=== PATIENT | female | born 1995 | race Caucasian/White ===

== ENCOUNTER 2016-09-15 19:53 | Emergency (ER) | payer OTHER ==
[~2016-09-15 19:53] MED LIST: ABIL2TAB; ABIL5TAB; ACET65TA; MOTR200T4; PERCOCET PO; SENN1TAB2 PO
[2016-09-15] MEDS ORDERED: IBUPROFEN 600 MG TAB As Ordered ONE (23:03)
--- NOTE | 2016-09-16 | REPUSA ---
CLINICAL HISTORY: Head trauma TECHNIQUE: Head CT without contrast COMPARISON: No study for comparison is available at the time of interpretation. Brain: No intracranial hemorrhage or parenchymal edema. Calvarium: No depressed fractures. Sinuses (partially visualized): No hemorrhage fluid levels. IMPRESSION: No intracranial hemorrhage or fracture.
--- NOTE | 2016-09-16 | REPUSA ---
HISTORY: Trauma COMPARISON: No relevant comparison is available at the time of interpretation. CT ORBITS without contrast: Nasal Bone: Intact. Sinuses and mastoids: Clear. Orbits: No retrobulbar trauma. Maxilla: Intact. IMPRESSION: No sinus fluid levels or orbital fracture.
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
--- NOTE | 2016-09-16 16:25 | REP ---
Right hand four views : There is no fracture or dislocation. Mineralization and joint spaces are normal. There are no calcifications or foreign bodies. Impression: Negative right hand . Signed by Jorge Bender MD 09/16/2016 04:16 P
--- NOTE | 2016-09-16 16:25 | REP ---
Right wrist four views : There is no fracture or dislocation. Mineralization and joint spaces are normal. There are no calcifications or foreign bodies. Impression: Negative right wrist . Signed by Jorge Bender MD 09/16/2016 04:16 P
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
== END 2016-09-16 01:17 | disposition home or self-care (01) ==
LOC: M ED 19:53
DX: S09.90XA Unspecified injury of head, initial encounter (principal); S60.811A Abrasion of right wrist, initial encounter; S80.211A Abrasion, right knee, initial encounter; Y04.8XXA Assault by other bodily force, initial encounter; Y92.89 Other specified places as the place of occurrence of the external cause; Y93.89 Activity, other specified; Y99.8 Other external cause status; Z88.1 Allergy status to other antibiotic agents; Z88.2 Allergy status to sulfonamides; Z88.8 Allergy status to other drugs, medicaments and biological substances; F17.210 Nicotine dependence, cigarettes, uncomplicated

== ENCOUNTER 2017-02-11 15:26 | Emergency (ER) | payer OTHER ==
[~2017-02-11] VITALS: Ht 172.7 cm; Wt 94.9 kg
[2017-02-11 15:26] VITALS: BP 123/68
== END 2017-02-11 16:37 | disposition home or self-care (01) ==
LOC: M ED 16:16
DX: S00.461A Insect bite (nonvenomous) of right ear, initial encounter (principal); W57.XXXA Bitten or stung by nonvenomous insect and other nonvenomous arthropods, initial encounter; Y92.89 Other specified places as the place of occurrence of the external cause; Y93.89 Activity, other specified; Y99.8 Other external cause status; Z88.2 Allergy status to sulfonamides; Z88.8 Allergy status to other drugs, medicaments and biological substances; F17.210 Nicotine dependence, cigarettes, uncomplicated

== ENCOUNTER → 2017-12-09 | Outpatient (CLI) | payer OTHER | LOC: M RAD 09:32 | DX: R10.9 Unspecified abdominal pain (principal) | CPT/HCPCS: 76705 ==

== ENCOUNTER → 2018-01-29 | Outpatient (CLI) | payer OTHER ==
[~2018-01-29] MED LIST changes: -ABIL2TAB; -ABIL5TAB; -ACET65TA; +E-Z-HD 98% w/w 340GM SUSP BTL As Ordered; +E-Z-PAQUE 96% w/w SUSP 176GM BTL As Ordered; -MOTR200T4; -PERCOCET PO; -SENN1TAB2 PO
== END ==
LOC: M RAD 08:19
DX: R19.7 Diarrhea, unspecified (principal)
CPT/HCPCS: 74250

== ENCOUNTER 2018-02-10 12:07 | Day surgery (SDC) | payer OTHER ==
[2018-02-10] MEDS: NS 1,000 ML IV (12:30)
[2018-02-10] MEDS ORDERED: LIDOCAINE 2% INJ 100 MG/5 ML SDV (FOR ANES.) As Ordered (13:50)
[2018-02-10] MEDS ORDERED: PROPOFOL 200 MG/20 ML VIAL As Ordered ×2 (13:50→14:02)
[2018-02-10] MEDS ORDERED: fentaNYL 100 MCG/2 ML INJECTION (J3010) As Ordered (14:02)
== END 2018-02-10 15:12 | disposition home or self-care (01) ==
LOC: M OPP 12:07
DX: K58.2 Mixed irritable bowel syndrome (principal); K64.8 Other hemorrhoids; K29.70 Gastritis, unspecified, without bleeding; R11.2 Nausea with vomiting, unspecified; R10.31 Right lower quadrant pain; R19.7 Diarrhea, unspecified; F41.9 Anxiety disorder, unspecified; F17.210 Nicotine dependence, cigarettes, uncomplicated; Z88.8 Allergy status to other drugs, medicaments and biological substances; Z83.3 Family history of diabetes mellitus; Z82.5 Family history of asthma and other chronic lower respiratory diseases; Z82.49 Family history of ischemic heart disease and other diseases of the circulatory system
CPT/HCPCS: 45378

== ENCOUNTER 2018-07-20 19:25 | Emergency (ER) | payer OTHER ==
[2018-07-20] MEDS: IBUPROFEN 600 MG TAB PO (20:33)
== END 2018-07-20 21:06 | disposition home or self-care (01) ==
LOC: M ED 19:25
DX: S61.208A Unspecified open wound of other finger without damage to nail, initial encounter (principal); W26.0XXA Contact with knife, initial encounter
CPT/HCPCS: 99284

== ENCOUNTER 2018-12-16 01:57 | Emergency (ER) | payer OTHER ==
[~2018-12-16] VITALS: Ht 172.7 cm; Wt 68.2 kg
[~2018-12-16 01:57] MED LIST changes: +ABIL2TAB; +ABIL5TAB; +ACET65TA; -E-Z-HD 98% w/w 340GM SUSP BTL As Ordered; -E-Z-PAQUE 96% w/w SUSP 176GM BTL As Ordered; +MOTR200T4; +PERCOCET PO; +SENN1TAB40 PO
[2018-12-16 03:10] VITALS: BP 126/70
--- NOTE | 2018-12-16 23:10 | ECGEPIP ---
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
[2018-12-17] MEDS ORDERED: ERYT-52 PO (18:46)
[2018-12-17] MEDS ORDERED: IBUP-1022 PO (18:46)
[2018-12-17] MEDS ORDERED: PROAAER10 INH (18:46)
== END 2018-12-16 03:09 | disposition left against medical advice (07) ==
LOC: M ED 01:57
DX: Z53.21 Procedure and treatment not carried out due to patient leaving prior to being seen by health care provider (principal)

== ENCOUNTER 2018-12-17 18:06 | Emergency (ER) | payer OTHER, MEDICAID ==
[~2018-12-17] VITALS: Ht 172.7 cm; Wt 78.0 kg
[2018-12-17 18:06] VITALS: BP 128/70
[2018-12-17] MEDS ORDERED: PROAAER10 INH (18:46)
[2018-12-17] MEDS ORDERED: ERYT-52 PO (18:46)
[2018-12-17] MEDS ORDERED: IBUP-1022 PO (18:46)
== END 2018-12-17 18:51 | disposition home or self-care (01) ==
LOC: M ED 18:06
DX: J40 Bronchitis, not specified as acute or chronic (principal); F17.200 Nicotine dependence, unspecified, uncomplicated; Z88.2 Allergy status to sulfonamides; Z88.1 Allergy status to other antibiotic agents; Z88.8 Allergy status to other drugs, medicaments and biological substances

== ENCOUNTER 2018-12-18 21:20 | Emergency (ER) | payer OTHER, MEDICAID ==
[~2018-12-18] VITALS: Ht 172.7 cm; Wt 68.2 kg
[~2018-12-18 21:20] MED LIST changes: +ERYT-52 PO; +IBUP-1022 PO; +PROAAER10 INH
[2018-12-18] MEDS ORDERED: NS 500 ML IV ONE (23:15)
[2018-12-18] MEDS ORDERED: MORPHINE 4 MG/ML 1ML VIAL/SYRINGE (J2270) IV ONE (23:15)
[2018-12-18] MEDS ORDERED: ONDANSETRON 4MG/2ML VIAL (J2405) As Ordered ONE (23:23)
[2018-12-18 23:27] LABS: BASO % 0.4 % (0.0-1.0); EOS # 0.1 10^3/uL (0.0-0.50); EOS % 1.6 % (0.0-3.0); HEMATOCRIT 39.3 % (36.0-47.0); HEMOGLOBIN 13.6 g/dl (12.0-15.5); LYMPH # 2.4 10^3/uL (1.5-6.5); LYMPH % 29.3 % (24.0-44.0); MEAN CORPUSCULAR HEMOGLOBIN 32.2 pg (27.0-33.0); MEAN CORPUSCULAR HGB CONC 34.6 g/dl (32.0-36.5); MEAN CORPUSCULAR VOLUME 93.1 fl (80.0-96.0); MONO # 0.6 10^3/uL (0.0-0.8); MONO % 7.6 % (0.0-5.0); PLATELET COUNT, AUTOMATED 279 10^3/uL (150-450); RED BLOOD COUNT 4.22 10^6/uL (4.00-5.40); WHITE BLOOD COUNT 8.2 10^3/uL (4.0-10.0)
[2018-12-18] MEDS ORDERED: ONDANSETRON 4MG/2ML VIAL (J2405) IV ONE (23:30)
[2018-12-18] MEDS ORDERED: ISOVUE-370 76% 100ML VIAL (Q9967) As Ordered ONE (23:39)
[2018-12-18 23:53] LABS: BLOOD UREA NITROGEN 5 MG/DL (7-18); CALCIUM LEVEL 8.9 MG/DL (8.5-10.1); CARBON DIOXIDE LEVEL 25 MEQ/L (21-32); CHLORIDE LEVEL 110 MEQ/L (98-107); CK-MB VALUE MASS < 1.0 NG/ML (<3.6); CPK CREATINE PHOSPHOKINASE 120 U/L (26-192); CREATININE FOR GFR 0.79 MG/DL (0.55-1.30); GLOMERULAR FILTRATION RATE > 60.0 (>60); GLUCOSE, FASTING 87 MG/DL (70-100); MB/CK RELATIVE INDEX 0.83 (< OR =4); POTASSIUM SERUM 3.4 MEQ/L (3.5-5.1); SODIUM LEVEL 142 MEQ/L (136-145); TROPONIN I < 0.02 NG/ML (< 0.10)
[2018-12-18 23:57] LABS: HCG, SERUM QUALITATIVE NEGATIVE (NEGATIVE)
[2018-12-19] MEDS ORDERED: KETOROLAC 30 MG/ML VIAL (J1885) IV ONE
[2018-12-19] MEDS ORDERED: GI COCKTAIL 50ML BTL(HYOSCYAMINE/MAALOX/LIDOCAINE VISCOUS)(1:3:1) PO ONE (01:00)
--- NOTE | 2018-12-19 01:02 | REPVR ---
EXAM: CT Angiography Chest With Contrast EXAM DATE/TIME: 12/18/2018 11:02 PM CLINICAL HISTORY: 23 years old, female; Chest pain; Type not specified; Additional info: Chest pain/ SOB TECHNIQUE: Imaging protocol: Axial computed tomographic angiography images of the chest with intravenous contrast using CT angiography protocol. Coronal and sagittal reformatted images were created and reviewed. 3D rendering: MIP reconstructed images were created and reviewed. Radiation optimization: All CT scans at this facility use at least one of these dose optimization techniques: automated exposure control; mA and/or kV adjustment per patient size (includes targeted exams where dose is matched to clinical indication); or iterative reconstruction. Contrast material: ISO; Contrast volume: 75 ml; Contrast route: AC; COMPARISON: CR Abdomen,Flat Upright,PA CHEST 05/26/2016 9:13 PM FINDINGS: Pulmonary arteries: Normal. No pulmonary emboli. Aorta: No aortic aneurysm. Suboptimal opacification of the aorta. Great vessels off aortic arch: Incidental aberrant right subclavian artery. Lungs: Subpleural nodule in the posterior basal segment of the right lower lobe measuring 5 mm. Subpleural nodule in the superior segment of the left lower lobe measuring 5 mm. other smaller lung nodules in the lateral basal left lower lobe. No acute consolidation. Pleural space: Normal. No pneumothorax. No pleural effusion. Heart: Normal. No cardiomegaly. No pericardial effusion. Lymph nodes: Unremarkable. No enlarged lymph nodes. Bones/joints: Unremarkable. No acute fracture. Soft tissues: Unremarkable. IMPRESSION: 1. Negative for pulmonary embolism. 2. Lung nodules as described. Likely benign a patient without known cancer history. No followup is necessary. Electronically signed by: Rubens Neri On 12/19/2018 01:01:34 AM
[2018-12-19] MEDS ORDERED: PRIL20TA2 PO (01:13)
[2018-12-19] MEDS ORDERED: CARA1TAB6 PO (01:13)
[2018-12-19 01:15] VITALS: BP 140/93
--- NOTE | 2018-12-19 15:36 | ED PDOC ---
Post-Departure Follow-Up dr kim faxed formal report of [facility] for fu Talita Mares MD Dec 19, 2018 15:36
--- NOTE | 2018-12-19 19:46 | ECGEPIP ---
Stationary ECG Study 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
== END 2018-12-19 01:30 | disposition home or self-care (01) ==
LOC: M ED 21:20
DX: K21.0 Gastro-esophageal reflux disease with esophagitis (principal); R05 Cough; F41.9 Anxiety disorder, unspecified; F32.9 Major depressive disorder, single episode, unspecified; F17.210 Nicotine dependence, cigarettes, uncomplicated; Z88.2 Allergy status to sulfonamides; Z88.8 Allergy status to other drugs, medicaments and biological substances
CPT/HCPCS: 71275; 80048; 82550; 82553; 84484; 84703; 85025; 93005; 96374; 96375; 99284; J1885; J2270; J2405; Q9967

== ENCOUNTER 2018-12-23 10:28 | Emergency (ER) | payer OTHER, MEDICAID ==
[~2018-12-23] VITALS: Ht 172.7 cm; Wt 68.1 kg
[~2018-12-23 10:28] MED LIST changes: +CARA1TAB6 PO; +PRIL20TA2 PO
[2018-12-23] MEDS ORDERED: IBUP-1022 PO (10:40)
[2018-12-23] MEDS ORDERED: GI COCKTAIL 50ML BTL(HYOSCYAMINE/MAALOX/LIDOCAINE VISCOUS)(1:3:1) PO ONE (11:30)
[2018-12-23] MEDS ORDERED: PANTOPRAZOLE 40MG TAB (PROTONIX) PO ONE (11:30)
[2018-12-23 12:21] LABS: BASO % 0.2 % (0.0-1.0); EOS # 0.1 10^3/uL (0.0-0.50); EOS % 1.1 % (0.0-3.0); HEMATOCRIT 41.5 % (36.0-47.0); HEMOGLOBIN 14.5 g/dl (12.0-15.5); LYMPH # 1.2 10^3/uL (1.5-6.5); LYMPH % 18.5 % (24.0-44.0); MEAN CORPUSCULAR HEMOGLOBIN 32.6 pg (27.0-33.0); MEAN CORPUSCULAR HGB CONC 34.9 g/dl (32.0-36.5); MEAN CORPUSCULAR VOLUME 93.3 fl (80.0-96.0); MONO # 0.4 10^3/uL (0.0-0.8); MONO % 6.9 % (0.0-5.0); NEUTROPHILS # 4.5 10^3/uL (1.8-7.7); PLATELET COUNT, AUTOMATED 249 10^3/uL (150-450); RED BLOOD COUNT 4.45 10^6/uL (4.00-5.40); WHITE BLOOD COUNT 6.2 10^3/uL (4.0-10.0)
[2018-12-23] MEDS ORDERED: ACETAMINOPHEN TAB 650MG DOSE (2X325MG) PO ONE (12:45)
[2018-12-23 13:03] LABS: HCG, SERUM QUALITATIVE NEGATIVE (NEGATIVE)
[2018-12-23 13:04] LABS: ALBUMIN 3.7 GM/DL (3.2-5.2); ALT/SGPT 36 U/L (12-78); BILIRUBIN,DIRECT 0.2 MG/DL (0.0-0.2); BLOOD UREA NITROGEN 12 MG/DL (7-18); CALCIUM LEVEL 9.1 MG/DL (8.5-10.1); CARBON DIOXIDE LEVEL 25 MEQ/L (21-32); CHLORIDE LEVEL 110 MEQ/L (98-107); CK-MB VALUE MASS < 1.0 NG/ML (<3.6); CPK CREATINE PHOSPHOKINASE 80 U/L (26-192); CREATININE FOR GFR 0.79 MG/DL (0.55-1.30); FREE T4 1.05 NG/DL (0.76-1.46); GLOMERULAR FILTRATION RATE > 60.0 (>60); GLUCOSE, FASTING 89 MG/DL (70-100); LIPASE 85 U/L (73-393); MB/CK RELATIVE INDEX 1.25 (< OR =4); SODIUM LEVEL 141 MEQ/L (136-145); TOTAL PROTEIN 7.2 GM/DL (6.4-8.2); TROPONIN I < 0.02 NG/ML (< 0.10)
[2018-12-23] MEDS ORDERED: SUCRALFATE SUSP 1GM/10ML UD PO ONE (13:15)
[2018-12-23] MEDS ORDERED: PROMETHAZINE INJ 25 MG/ML VIAL (J2550) IV ONE (13:15)
--- NOTE | 2018-12-23 13:44 | REP ---
Chest two views HISTORY: Chest pain Comparison: None The lungs are clear. The heart is normal in size. The pulmonary vasculature is normal in appearance. The bony structure is intact. IMPRESSION: No acute disease. Electronically Signed by Angel Reeder MD 12/23/2018 01:35 P
[2018-12-23 13:45] VITALS: BP 136/69
--- NOTE | 2018-12-23 13:52 | REP ---
RIGHT UPPER QUADRANT ULTRASOUND: Real-time sonographic evaluation of the right upper quadrant performed. The gallbladder demonstrates no evidence of intraluminal sludge or calculi, wall thickening or pericholecystic fluid. There is no intrahepatic or extrahepatic biliary dilatation, common bile duct measuring 4 mm in diameter. Liver and pancreas demonstrate no gross mass. The pancreas is not optimally seen due to overlying bowel gas. Right kidney demonstrates no hydronephrosis with normal size 11.3 cm in length. IMPRESSION: Essentially negative right upper quadrant ultrasound. Electronically Signed by Jorge Robledo MD 12/24/2018 04:42 P
[2018-12-23] MEDS ORDERED: PROT1TAB2 PO (14:04)
[2018-12-23] MEDS ORDERED: ZOFR4TAB16 PO (14:04)
--- NOTE | 2018-12-24 05:48 | ECGEPIP ---
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
== END 2018-12-23 14:26 | disposition home or self-care (01) ==
LOC: M ED 10:28
DX: K21.0 Gastro-esophageal reflux disease with esophagitis (principal); R11.2 Nausea with vomiting, unspecified; Z88.2 Allergy status to sulfonamides; Z88.8 Allergy status to other drugs, medicaments and biological substances

== ENCOUNTER 2018-12-28 12:13 | Emergency (ER) | payer OTHER, MEDICAID ==
[~2018-12-28] VITALS: Ht 172.7 cm; Wt 74.0 kg
[~2018-12-28 12:13] MED LIST changes: +PROT1TAB2 PO; +ZOFR4TAB16 PO
[2018-12-28] MEDS ORDERED: NS 1,000 ML IV ONE (13:00)
[2018-12-28 13:51] LABS: BASO % 0.2 % (0.0-1.0); EOS % 0.5 % (0.0-3.0); HEMATOCRIT 45.8 % (36.0-47.0); HEMOGLOBIN 16.4 g/dl (12.0-15.5); LYMPH # 1.5 10^3/uL (1.5-6.5); LYMPH % 16.9 % (24.0-44.0); MEAN CORPUSCULAR HEMOGLOBIN 33.3 pg (27.0-33.0); MEAN CORPUSCULAR HGB CONC 35.8 g/dl (32.0-36.5); MEAN CORPUSCULAR VOLUME 93.1 fl (80.0-96.0); MONO # 0.6 10^3/uL (0.0-0.8); MONO % 6.8 % (0.0-5.0); NEUTROPHILS # 6.5 10^3/uL (1.8-7.7); NEUTROPHILS % 75.3 % (36.0-66.0); PLATELET COUNT, AUTOMATED 303 10^3/uL (150-450); RED BLOOD COUNT 4.92 10^6/uL (4.00-5.40); WHITE BLOOD COUNT 8.7 10^3/uL (4.0-10.0)
[2018-12-28 14:16] LABS: ALBUMIN 4.9 GM/DL (3.2-5.2); ALT/SGPT 54 U/L (12-78); AMYLASE 51 U/L (25-115); BILIRUBIN,DIRECT 0.5 MG/DL (0.0-0.2); BILIRUBIN,TOTAL 3.1 MG/DL (0.2-1.0); BLOOD UREA NITROGEN 12 MG/DL (7-18); CALCIUM LEVEL 9.6 MG/DL (8.5-10.1); CARBON DIOXIDE LEVEL 27 MEQ/L (21-32); CHLORIDE LEVEL 105 MEQ/L (98-107); CREATININE FOR GFR 0.89 MG/DL (0.55-1.30); GLOMERULAR FILTRATION RATE > 60.0 (>60); GLUCOSE, FASTING 79 MG/DL (70-100); LIPASE 63 U/L (73-393); POTASSIUM SERUM 3.9 MEQ/L (3.5-5.1); SODIUM LEVEL 139 MEQ/L (136-145); TOTAL PROTEIN 9.2 GM/DL (6.4-8.2)
[2018-12-28] MEDS ORDERED: ONDA4TAB6 PO (16:25)
[2018-12-28] MEDS ORDERED: PANT20TA2 PO (16:25)
[2018-12-28 16:26] VITALS: BP 126/82
--- NOTE | 2018-12-29 07:33 | REP ---
RIGHT UPPER QUADRANT ULTRASOUND: Real-time sonographic evaluation of the right upper quadrant performed. Gallbladder demonstrates no evidence of intraluminal sludge or calculi, wall thickening or pericholecystic fluid. There is no intrahepatic or extrahepatic biliary dilatation, common bile duct measuring 4 mm. Liver demonstrates no homogeneous echotexture with no gross mass. Pancreas could not be visualized due to overlying bowel gas. Right kidney demonstrates no hydronephrosis with normal size 11.1 cm in length. IMPRESSION: Negative right upper quadrant ultrasound. Electronically Signed by Jorge Robledo MD 12/29/2018 05:19 P
== END 2018-12-28 16:46 | disposition home or self-care (01) ==
LOC: M ED 12:13
DX: R11.2 Nausea with vomiting, unspecified (principal); R10.9 Unspecified abdominal pain; F33.9 Major depressive disorder, recurrent, unspecified; F41.9 Anxiety disorder, unspecified; F60.3 Borderline personality disorder; Z79.899 Other long term (current) drug therapy

== ENCOUNTER → 2019-01-21 | Outpatient (REF) | payer OTHER, MEDICAID ==
[~2019-01-21] MED LIST changes: +ONDA4TAB6 PO; +PANT20TA2 PO
[2019-01-21 11:43] LABS: CHOLESTEROL RISK RATIO 5.763 (<5)
[2019-01-21 12:26] LABS: HEMOGLOBIN A1c 4.5 %
== END ==
LOC: M SFHCPLAZ 08:28
PROVIDERS: ATTEND Nurse Practitioner Family
DX: Z83.3 Family history of diabetes mellitus (principal)

== ENCOUNTER → 2019-02-11 | Outpatient (REF) | payer OTHER, MEDICAID ==
[2019-02-11 18:40] LABS: CHLAMYDIA DNA AMPLIFICATION NEGATIVE (NEGATIVE); GC DNA AMPLIFICATION NEGATIVE (NEGATIVE)
== END ==
LOC: M SFHCPLAZ 16:04
PROVIDERS: ATTEND Nurse Practitioner Family
DX: Z12.4 Encounter for screening for malignant neoplasm of cervix (principal); R87.612 Low grade squamous intraepithelial lesion on cytologic smear of cervix (LGSIL)
CPT/HCPCS: 87661; G0123

== ENCOUNTER → 2019-05-06 | Outpatient (REF) | payer OTHER, MEDICAID ==
[2019-05-06 18:32] LABS: APPEARANCE, URINE CLOUDY (CLEAR); BACTERIA, URINE AUTO 3+ (NEGATIVE); BILIRUBIN, URINE AUTO NEGATIVE (NEGATIVE); BLOOD, URINE BLOOD 1+ (NEGATIVE); COLOR, URINE AMBER (YELLOW); GLUCOSE, URINE (UA) AUTO NEGATIVE (NEGATIVE); KETONE, URINE AUTO NEGATIVE (NEGATIVE); LEUKOCYTE ESTERASE, URINE AUTO 1+ (NEGATIVE); MUCUS, URINE SMALL (NEGATIVE); NITRITE, URINE AUTO NEGATIVE (NEGATIVE); PROTEIN, URINE AUTO 1+ mg/dL (NEGATIVE); RBC, URINE AUTO 1 /HPF (0-3); SPECIFIC GRAVITY URINE AUTO 1.029 (1.002-1.035); SQUAMOUS EPITHELIAL CELL UR AU 61 /HPF (0-6); UROBILINOGEN, URINE AUTO 0.2 mg/dL (0.0-2.0); WBC, URINE AUTO 4 /HPF (0-3)
== END ==
LOC: M SFHCPLAZ 17:39
PROVIDERS: ATTEND Nurse Practitioner Family
DX: R10.9 Unspecified abdominal pain (principal)

== ENCOUNTER 2019-06-15 17:08 | Emergency (ER) | payer OTHER, MEDICAID ==
[~2019-06-15] VITALS: Ht 172.7 cm; Wt 77.2 kg
[2019-06-15 17:08] VITALS: BP 165/70
[~2019-06-15 17:08] MED LIST changes: +SENN-53 PO; -SENN1TAB40 PO
--- NOTE | 2019-06-15 19:19 | REP ---
LEFT HAND, FOUR VIEWS: HAND: There is no evidence of an acute fracture, dislocation or intrinsic bone disease. IMPRESSION: No fracture or dislocation. Electronically Signed by Jorge Robledo MD 06/17/2019 09:39 A
== END 2019-06-15 19:26 | disposition left against medical advice (07) ==
LOC: M ED 17:08
DX: Z53.21 Procedure and treatment not carried out due to patient leaving prior to being seen by health care provider (principal)

== ENCOUNTER 2019-06-26 04:30 | Emergency (ER) | payer OTHER, MEDICAID ==
[~2019-06-26] VITALS: Ht 172.7 cm; Wt 72.7 kg
[2019-06-26] MEDS ORDERED: GI COCKTAIL 50ML BTL(HYOSCYAMINE/MAALOX/LIDOCAINE VISCOUS)(1:3:1) PO ONE (04:45)
[2019-06-26] MEDS ORDERED: NS 1,000 ML IV ONE (04:45)
[2019-06-26] MEDS ORDERED: diphenhydrAMINE INJ 50MG/ML VIAL (J1200) IV STA (04:46)
[2019-06-26] MEDS ORDERED: HALOPERIDOL 5 MG/ML VIAL (J1630) IV STA (04:46)
[2019-06-26 04:58] LABS: BASO % 0.3 % (0.0-1.0); EOS # 0.2 10^3/uL (0.0-0.5); EOS % 3.6 % (0.0-3.0); HEMATOCRIT 43.7 % (36.0-47.0); HEMOGLOBIN 14.7 g/dl (12.0-15.5); LYMPH # 2.9 10^3/uL (1.5-5.0); LYMPH % 48.7 % (24.0-44.0); MEAN CORPUSCULAR HEMOGLOBIN 32.7 pg (27.0-33.0); MEAN CORPUSCULAR HGB CONC 33.6 g/dl (32.0-36.5); MEAN CORPUSCULAR VOLUME 97.1 fl (80.0-96.0); MONO # 0.6 10^3/uL (0.0-0.8); MONO % 9.5 % (0.0-5.0); NEUTROPHILS # 2.2 10^3/uL (1.5-8.5); NEUTROPHILS % 37.6 % (36.0-66.0); PLATELET COUNT, AUTOMATED 267 10^3/uL (150-450); WHITE BLOOD COUNT 5.9 10^3/uL (4.0-10.0)
[2019-06-26 05:11] LABS: APPEARANCE, URINE HAZY (CLEAR); BACTERIA, URINE AUTO NEGATIVE (NEGATIVE); BILIRUBIN, URINE AUTO NEGATIVE (NEGATIVE); BLOOD, URINE BLOOD 1+ (NEGATIVE); COLOR, URINE YELLOW (YELLOW); GLUCOSE, URINE (UA) AUTO NEGATIVE (NEGATIVE); KETONE, URINE AUTO NEGATIVE (NEGATIVE); LEUKOCYTE ESTERASE, URINE AUTO NEGATIVE (NEGATIVE); MUCUS, URINE SMALL (NEGATIVE); NITRITE, URINE AUTO NEGATIVE (NEGATIVE); PROTEIN, URINE AUTO NEGATIVE (NEGATIVE); RBC, URINE AUTO 6 /HPF (0-3); SPECIFIC GRAVITY URINE AUTO 1.013 (1.002-1.035); SQUAMOUS EPITHELIAL CELL UR AU 12 /HPF (0-6); UROBILINOGEN, URINE AUTO 0.2 mg/dL (0.0-2.0); WBC, URINE AUTO 2 /HPF (0-3)
[2019-06-26] MEDS ORDERED: PANTOPRAZOLE 40MG INJ (PROTONIX) (C9113) IV ONE (05:15)
[2019-06-26 05:35] LABS: HCG, SERUM QUALITATIVE NEGATIVE (NEGATIVE)
[2019-06-26 05:36] LABS: ALBUMIN 3.7 GM/DL (3.2-5.2); ALT/SGPT 93 U/L (12-78); BILIRUBIN,DIRECT 0.1 MG/DL (0.0-0.2); BILIRUBIN,TOTAL 0.7 MG/DL (0.2-1.0); BLOOD UREA NITROGEN 11 MG/DL (7-18); CALCIUM LEVEL 8.4 MG/DL (8.5-10.1); CARBON DIOXIDE LEVEL 27 MEQ/L (21-32); CHLORIDE LEVEL 108 MEQ/L (98-107); CREATININE FOR GFR 0.79 MG/DL (0.55-1.30); GLOMERULAR FILTRATION RATE > 60.0 (>60); GLUCOSE, FASTING 116 MG/DL (70-100); LIPASE 134 U/L (73-393); POTASSIUM SERUM 3.9 MEQ/L (3.5-5.1); SODIUM LEVEL 140 MEQ/L (136-145); TOTAL PROTEIN 7.4 GM/DL (6.4-8.2)
--- NOTE | 2019-06-26 06:43 | REPVR ---
PROCEDURE INFORMATION: Exam: CT Abdomen And Pelvis Without Contrast Exam date and time: 06/26/2019 4:49 AM Clinical history: 23 years old, female; Abdominal pain; Generalized TECHNIQUE: Imaging protocol: Computed tomography of the abdomen and pelvis without contrast. Radiation optimization: All CT scans at this facility use at least one of these dose optimization techniques: automated exposure control; mA and/or kV adjustment per patient size (includes targeted exams where dose is matched to clinical indication); or iterative reconstruction. COMPARISON: CT ABD PELVIS WITH CONTRAST 05/05/2016 1:50 PM FINDINGS: Liver: Normal. No mass. Gallbladder and bile ducts: Normal. No calcified stones. No ductal dilation. Pancreas: Normal. No ductal dilation. Spleen: Normal. No splenomegaly. Adrenals: Normal. No mass. Kidneys and ureters: Normal. No hydronephrosis. Stomach and bowel: Density along the cecal tip suggesting prior appendectomy. Appendix: No evidence of appendicitis. Intraperitoneal space: Unremarkable. No free air. No significant fluid collection. Vasculature: Unremarkable. No abdominal aortic aneurysm. Lymph nodes: Unremarkable. No enlarged lymph nodes. Bladder: Unremarkable as visualized. Reproductive: Unremarkable as visualized. Bones/joints: Unremarkable. No acute fracture. Soft tissues: Unremarkable. IMPRESSION: Negative CT abdomen/pelvis with suggestion of interval appendectomy since 05/05/2016. Electronically signed by: Hermann Louis On 06/26/2019 06:43:03 AM
[2019-06-26] MEDS ORDERED: SUCR1SS PO (06:47)
[2019-06-26] MEDS ORDERED: PROT1TAB2 PO (06:47)
[2019-06-26 06:57] VITALS: BP 107/51
== END 2019-06-26 07:04 | disposition home or self-care (01) ==
LOC: M ED 04:30
DX: K29.70 Gastritis, unspecified, without bleeding (principal); K29.80 Duodenitis without bleeding; F60.3 Borderline personality disorder; Z91.14 Patient's other noncompliance with medication regimen; F12.10 Cannabis abuse, uncomplicated; Z87.891 Personal history of nicotine dependence; Z79.899 Other long term (current) drug therapy; Z88.2 Allergy status to sulfonamides; Z88.8 Allergy status to other drugs, medicaments and biological substances
CPT/HCPCS: 74176; 80048; 80076; 81001; 83690; 84703; 85025; 87086; 96361; 96374; 96375; 99284; C9113; J1200; J1630

== ENCOUNTER 2019-07-08 10:39 | Emergency (ER) | payer OTHER, MEDICAID ==
[~2019-07-08 10:39] MED LIST changes: +SUCR1SS PO
[2019-07-08] MEDS ORDERED: CYCL10TA PO (11:42)
[2019-07-08] MEDS ORDERED: NAPR-837 PO (11:42)
[2019-07-08] MEDS ORDERED: NAPROXEN 250 MG TAB PO ONE (11:45)
[2019-07-08] MEDS ORDERED: CYCLOBENZAPRINE 10 MG TAB PO ONE (11:45)
[2019-07-08 12:19] VITALS: BP 148/96
== END 2019-07-08 12:33 | disposition home or self-care (01) ==
LOC: EDBD 10:39 → M ED 10:39
DX: S39.012A Strain of muscle, fascia and tendon of lower back, initial encounter (principal); X58.XXXA Exposure to other specified factors, initial encounter; Y92.89 Other specified places as the place of occurrence of the external cause; Y93.89 Activity, other specified; Y99.0 Civilian activity done for income or pay; K21.9 Gastro-esophageal reflux disease without esophagitis; Z88.2 Allergy status to sulfonamides; Z88.8 Allergy status to other drugs, medicaments and biological substances

== ENCOUNTER 2020-09-29 17:00 | Emergency (ER) | payer MEDICAID, OTHER ==
[~2020-09-29] VITALS: Ht 172.7 cm; Wt 89.8 kg
[~2020-09-29 17:00] MED LIST changes: +CYCL-707 PO; +NAPR-837 PO; -PANT20TA2 PO; +PANT20TA6 PO
--- OUTSIDE RECORDS SUMMARY | 2020-09-29 17:07 | CCD ---
Author Author [facility] Organization [facility] Address Unknown Phone Unavailable Support Name Relationship Address Phone BARBARA DENNY Next Of Kin [address] [place] [address] UN Next Of Kin Unknown Unavailable [employer] Next Of Kin [address] [place] [address] Ellen Pierre Next Of Kin [address] [place] [address] SELF EMPLOYED Next Of Kin [address] [place] [address] BRIDGER IRVIN Next Of Kin [address] [facility] [address] [place] [address] TRENDYS Next Of Kin [address] [place] [address] TGIFS Next Of Kin [address] [facility] [place] [address] RAKAN AVERY Next Of Kin [address] [facility] [address] [place] [address] Naeem Jackson MD Next Of Kin [address] [place] [id number] Jhoana Fitzpatrick Next Of Kin [address] [place] [address] Di Santos DDS Next Of Kin [address] [place], [place] [id number] JEANE GONZALEZ Next Of Kin [address] [place] [address] FAST TRAC Next Of Kin [address] [place] [address] [place] [address] [phone] CONVERGYS Next Of Kin [address] [place] [address] MORRISALEXANDER TAI Next Of Kin [address] [place] [address] UE Next Of Kin Unknown Unavailable FLY CACERES Next Of Kin [address] [facility] [address] [place] [address] NONE BRINDA [place] [address] Tom FOSTERDi Scott Next Of Kin [address] [place] [address] VICKEY ALLEN Next Of Kin [address] [facility] [address] [place] [address] REBEKAH HILTON Next Of Kin [address] [place] [address] ST Next Of Kin Unknown Unavailable BARBARA DOOLEY Next Of Kin [address] [place] [address] BRIDGER HILTON Next Of Kin [address] [place] [address] Rebekah Hilton ECON [address] [facility] [address] [place] [address] [phone] BRIDGER HILTON ECON [address] [facility] [address] [place] [address] [phone] Rakan Avery ECON Unknown [phone] Care Team Providers Care Latexer Name Role Phone Ellen Motley FLUORESCENT LAMP REPLACER Unavailable Unavailable Jannette Jackson MD Unavailable Unavailable Jannette Jackson MD Unavailable Unavailable Jannette Jackson MD Unavailable Unavailable Jannette Jackson MD Unavailable Unavailable Jannette Jackson MD Unavailable Unavailable Jannette Jackson MD Unavailable Unavailable Jannette Jackson MD Unavailable Unavailable Jannette Jackson MD Unavailable Unavailable Jannette Jackson MD Unavailable Unavailable Jannette Jackson MD Unavailable Unavailable Jannette Jackson MD Unavailable Unavailable Jannette Jackson MD Unavailable Unavailable Jannette Jackson MD Unavailable Unavailable Jannette Jackson MD Unavailable Unavailable Jannette Jackson MD Unavailable Unavailable Jannette Jackson MD Unavailable Unavailable Jannette Jackson MD Unavailable Unavailable Jannette Jackson MD Unavailable Unavailable Jannette Jackson MD Unavailable Unavailable Jannette Jackson MD Unavailable Unavailable Jannette Jackson MD Unavailable Unavailable Jannette Jackson MD Unavailable Unavailable Jannette Jackson MD Unavailable Unavailable Jannette Jackson MD Unavailable Unavailable Jannette Jackson MD Unavailable Unavailable Jannette Jackson MD Unavailable Unavailable Jannette Jackson MD Unavailable Unavailable Jannette Jackson MD Unavailable Unavailable Jannette Jackson MD Unavailable Unavailable Jannette Jackson MD Unavailable Unavailable Jannette Jackson MD Unavailable Unavailable Jannette Jackson MD Unavailable Unavailable Jannette Jackson MD Unavailable Unavailable Jannette Jackson MD Unavailable Unavailable Jannette Jackson MD Unavailable Unavailable Jannette Jackson MD Unavailable Unavailable Jannette Jackson MD Unavailable Unavailable Jannette Jackson MD Unavailable Unavailable Jannette Jackson MD Unavailable Unavailable Jannette Jackson MD Unavailable Unavailable Jannette Jackson MD Unavailable Unavailable Jannette Jackson MD Unavailable Unavailable Jannette Jackson MD Unavailable Unavailable Jannette Jackson MD Unavailable Unavailable Jannette Jackson MD Unavailable Unavailable Jannette Jackson MD Unavailable Unavailable Jannette Jackson MD Unavailable Unavailable aJnnette Jackson MD Unavailable Unavailable Jannette Jackson MD Unavailable Unavailable Jannette Jackson MD Unavailable Unavailable Jannette Jackson MD Unavailable Unavailable Jannette Jackson MD Unavailable Unavailable Jannette Jackson MD Unavailable Unavailable Jannette Jackson MD Unavailable Unavailable Jannette Jackson MD Unavailable Unavailable Jannette Jackson MD Unavailable Unavailable Jannette Jackson MD Unavailable Unavailable Jannette Jackson MD Unavailable Unavailable Jannette Jackson MD Unavailable Unavailable Jannette Jackson MD Unavailable Unavailable Jannette Jackson MD Unavailable Unavailable Jannette Jackson MD Unavailable Unavailable Jannette Jackson MD Unavailable Unavailable Jannette Jackson MD Unavailable Unavailable Jannette Jackson MD Unavailable Unavailable Jannette Jackson MD Unavailable Unavailable Jannette Jackson MD Unavailable Unavailable Jannette Jackson MD Unavailable Unavailable Jannette Jackson MD Unavailable Unavailable Jannette Jackson MD Unavailable Unavailable Jannette Jackson MD Unavailable Unavailable Jannette Jackson MD Unavailable Unavailable Jannette Jackson MD Unavailable Unavailable Jannette Jackson MD Unavailable Unavailable Jannette Jackson MD Unavailable Unavailable Jannette Jackson MD Unavailable Unavailable Jannette Jackson MD Unavailable Unavailable Jannette Jackson MD Unavailable Unavailable Jannette Jackson MD Unavailable Unavailable Jannette Jackson MD Unavailable Unavailable Jannette Jackson MD Unavailable Unavailable Jannette Jackson MD Unavailable Unavailable Jannette Jackson MD Unavailable Unavailable Jannette Jackson MD Unavailable Unavailable Jannette Jackson MD Unavailable Unavailable Jannette Jackson MD Unavailable Unavailable Jannette Jackson MD Unavailable Unavailable Jannette Jackson MD Unavailable Unavailable Jannette Jackson MD Unavailable Unavailable Kailey Motley FLUORESCENT LAMP REPLACER-BC Unavailable Unavailable Motley, F Ellen FLUORESCENT LAMP REPLACER-BC Unavailable Unavailable Motley, F Ellen FLUORESCENT LAMP REPLACER-BC Unavailable Unavailable Motley, F Ellen FLUORESCENT LAMP REPLACER-BC Unavailable Unavailable Motley, F Ellen FLUORESCENT LAMP REPLACER-BC Unavailable Unavailable Motley, F Ellen FLUORESCENT LAMP REPLACER-BC Unavailable Unavailable Motley, F Ellen FLUORESCENT LAMP REPLACER-BC Unavailable Unavailable Motley, F Ellen FLUORESCENT LAMP REPLACER-BC Unavailable Unavailable Motley, F Ellen FLUORESCENT LAMP REPLACER-BC Unavailable Unavailable Motley, F Ellen FLUORESCENT LAMP REPLACER-BC Unavailable Unavailable Motley, F Ellen FLUORESCENT LAMP REPLACER-BC Unavailable Unavailable Motley, F Ellen FLUORESCENT LAMP REPLACER-BC Unavailable Unavailable Motley, F Ellen FLUORESCENT LAMP REPLACER-BC Unavailable Unavailable Motley, F Ellen FLUORESCENT LAMP REPLACER-BC Unavailable Unavailable Motley, F Ellen FLUORESCENT LAMP REPLACER-BC Unavailable Unavailable Motley, F Ellen FLUORESCENT LAMP REPLACER-BC Unavailable Unavailable Motley, F Ellen FLUORESCENT LAMP REPLACER-BC Unavailable Unavailable Motley, F Ellen FLUORESCENT LAMP REPLACER-BC Unavailable Unavailable Motley, F Ellen FLUORESCENT LAMP REPLACER-BC Unavailable Unavailable Motley, F Ellen FLUORESCENT LAMP REPLACER-BC Unavailable Unavailable Motley, F Ellen FLUORESCENT LAMP REPLACER-BC Unavailable Unavailable Motley, F Ellen FLUORESCENT LAMP REPLACER-BC Unavailable Unavailable Re-disclosure Warning The records that you are about to access may contain information from federally-assisted alcohol or drug abuse programs. If such information is present, then the following federally mandated warning applies: This information has been disclosed to you from records protected by federal confidentiality rules (42 CFR part 2). The federal rules prohibit you from making any further disclosure of this information unless further disclosure is expressly permitted by the written consent of the person to whom it pertains or as otherwise permitted by 42 CFR part 2. A general authorization for the release of medical or other information is NOT sufficient for this purpose. The Federal rules restrict any use of the information to criminally investigate or prosecute any alcohol or drug abuse patient.The records that you are about to access may contain highly sensitive health information, the redisclosure of which is protected by Article 27-F of the [facility] Public Health law. If you continue you may have access to information: Regarding HIV / AIDS; Provided by facilities licensed or operated by the [facility] Office of Mental Health; or Provided by the [facility] Office for People With Developmental Disabilities. If such information is present, then the following [facility] mandated warning applies: This information has been disclosed to you from confidential records which are protected by state law. State law prohibits you from making any further disclosure of this information without the specific written consent of the person to whom it pertains, or as otherwise permitted by law. Any unauthorized further disclosure in violation of state law may result in a fine or residential sentence or both. A general authorization for the release of medical or other information is NOT sufficient authorization for further disc losure. Family History Family Member Name Family Member Gender Family Member Status Date o f Status Description Data Source(s) Unknown Unknown [facility]ters Encounter Providers Location Date Indications Data Source(s ) Outpatient Attender: Naeem Jackson MD FP 05/19/2020 07:27:01 AM EDT [facility] Outpatient Attender: Naeem RODRIGUEZ 05/18/2020 02:40:03 PM EDT [facility] Outpatient Attender: Naeem RODRIGUEZ 05/18/2020 02:39:00 PM EDT [facility] Outpatient Attender: Naeem RODRIGUEZ 05/18/2020 12:54:00 PM EDT [facility] Outpatient Attender: Ellen RODRIGUEZ 04/28/2020 02: 29:01 PM EDT [facility] Outpatient Attender: Ellen RODRIGUEZ 04/28/2020 02: 28:02 PM EDT [facility] Outpatient Attender: MATILDE RODRIGUEZ 04/02/2020 12:02:01 AM EDT [facility] Outpatient Attender: MATILDE RODRIGUEZ 04/01/2020 02:08:00 PM EDT [facility] Outpatient Attender: MATILDE RODRIGUEZ 03/29/2020 04:22:01 PM EDT [facility] Outpatient Attender: MATILDE RODRIGUEZ 03/29/2020 02:40:01 PM EDT [facility] Outpatient Attender: Ellen RODRIGUEZ 03/29/2020 02: 40:00 PM EDT [facility] Outpatient Attender: Ellen RODRIGUEZ 03/29/2020 02: 11:01 PM EDT [facility] Outpatient Attender: MATILDE RODRIGUEZ 03/29/2020 02:11:00 PM EDT [facility] Outpatient Attender: Ellen RODRIGUEZ 03/29/2020 02: 10:00 PM EDT [facility] Outpatient Attender: MATILDE RODRIGUEZ 03/29/2020 01:57:01 PM EDT [facility] Family [facility] Outpatient Attender: MATILDE Motley FLUORESCENT LAMP REPLACER FP 03/29/2020 01:56:01 PM EDT [facility] Family [facility] Outpatient Attender: MATILDE Motley FLUORESCENT LAMP REPLACER FP 03/29/2020 01:55:01 PM EDT [facility] Outpatient Attender: MATILDE Motley FLUORESCENT LAMP REPLACER FP 03/29/2020 01:50:00 PM EDT [facility] Family [facility] Outpatient Attender: MATILDE Motley FLUORESCENT LAMP REPLACER FP 11/27/2019 09:01:02 PM EDT [facility] Outpatient Attender: MATILDE BURKP FP 10/16/2019 08:01:11 PM EST [facility] Family Health Insurance Providers Payer name Policy type / Coverage type Policy ID Covered democrat ID Covered democrat's relationship to valero Policy Valero Plan Information UMR P [id number] S [id number] D Managed Care [facility] S [id number] S [id number] Managed Care - [facility] Community Plan O [id number] S [id number] Self Pay P [id number] S [id number] Sliding Fee Scale O [id number] S [id number] UMR P [id number] S [id number] Medicaid S [id number] S [id number] UMR P [id number] S [id number] Medicaid P [id number] S [id number] [facility] SP MEDICAID [id number] SP [id number] R [facility] [id number] MEDICAID [id number] SP [id number] R [facility] [id number] SF2 [id number] UNHC COMMUNITY PLAN MCDHMO [id number] SP [id number] UNHC COMMUNITY PLAN MCDHMO [id number] SP [id number] UNHC COMMUNITY PLAN MCDHMO [id number] SP [id number] [facility] [id number] SP [id number] UNHC COMMUNITY PLAN MCDHMO [id number] SP [id number] UNHC COMMUNITY PLAN MCDHMO [id number] SP [id number] HMO BLUE [id number] SP [id number] HMO BLUE [id number] SP [id number] HMO BLUE [id number] SP [id number] HMO BLUE [id number] SP [id number] HMO BLUE [id number] MO2 [id number] OTHER WORKERS COMPENSATION [id number] SP [id number] MEDICAID M [id number] S [id number] UMR O [id number] S [id number] ANSI-Medicaid [id number] ANSI-Commercial [id number] ANSI-Medicaid [id number] ANSI-Commercial [id number] ANSI-Medicaid [id number] ANSI-Commercial [id number] ANSI-Medicaid [id number] ANSI-Commercial [id number] Medicaid [place] Medigap Part B [id number] Self [id number] Umr Commercial [id number] UMR P [id number] S [id number] MEDICAID -CLINIC [id number] UMR -O/P [id number] 18 [id number] Managed Care - Community Plan [facility] S [id number] S [id number] Medicaid O [id number] S [id number] UMR P [id number] S [id number] UMR [facility] [id number] SF2 [id number] Medicaid O [id number] S [id number] Medicaid P [id number] S [id number] [facility](MCAID) O [id number] S [id number] [facility] Brunilda/MCR Health Maintenance Organization (HMO) [id number] Self [id number] Self Pay P UNAVAILABLE S UNAVAILA BLE Managed Care - Community Plan [facility] P [id number] S [id number] [employer] BC[employer] CHP P [id number] S [id number] [facility] Community Plan Commercial [id number] Family Dependent [id number] [facility] Community Plan Commercial [id number] Family Dependent [id number] [facility] Community Plan Commercial [id number] Family Dependent [id number] [facility] Community Plan Commercial Family Dependent [facility] Brunilda/MCR Health Maintenance Organization (HMO) [id number] [id number] [facility] Organization (HMO) Self [facility] [id number] SP [id number] SELF PAY UNAVAILABLE UNAVAILA BLE MEDICAID -CLINIC [id number] Medicaid Dental O [id number] S [id number] HMO BLUE [id number] SP [id number] BLUE CROSS LUU PLAN [id number] SP [id number] EXCELL[employer] BCBS P [id number] S [id number] EXCELLUS BCBS P [id number] S [id number] BLUE CROSS BLUE SHIELD-CLINIC [id number] 18 [id number] BLUE CROSS BLUE SHIELD-CLINIC [id number] 18 [id number] BLUE CROSS LUU PLAN [id number] SP [id number] BLUE CROSS LUU PLAN [id number] SP [id number] BLUE CROSS BLUE SHIELD-O/P [id number] 18 [id number] BLUE CROSS BLUE SHIELD-O/P [id number] 18 [id number] BLUE CROSS BLUE SHIELD-CLINIC [id number] 18 [id number] Problems, Conditions, and Diagnoses Code Display Name Description Problem Type Effective Dates Data Source(s) 524.31 CROWDING OF TEETH CROWDING OF TEETH 05/18/2020 02:38:53 PM EDT [facility] 528.2 Aphthous ulcer of mouth Aphthous ulcer of mouth 03/29/2020 02:39:35 PM EDT [facility] Results ID Date Data Source [id number] 05/18/2020 01:15:08 PM EDT [facility] Vital SignsBlood Pressure: 120/72 Patient History Medical History:T & A 2008 with nasal surgerycyst on overieselbow, ankle, wrist broken within months of one another - 5th grade excemahigh trigliceridesobesityMental Health Problems( Dr. Hope, [facility] ) Medication managementanxietydepressionborderline personality disorderSurgical History:TonsillectomyappendectomyFamily History:FH ArthritisFH AsthmaFH ADHDFH DepressionFH DiabetesFH HypertensionFH HyperlipidemiaFH Mental IllnessFH ObesityFH Seizure DisordersFH Thyroid DiseaseFH EczemaSocial/Personal History:Lives with mother Current Problems: CROWDING OF TEETH (ICD-524.31) (XMK20-T42.31)Aphthous ulcer of mouth (ICD-528.2) (TOA01-U72.0)Gastro-esophageal reflux disease without esophagitis (ICD10- K21.9)Dyspnea, class I (ICD-786.09) (BNJ25-W68.09)Acute upper respiratory infection, unspecified (YDO47-Z22.9)Cough (ICD-786.2) (EXT23-A70)Daily headache (ICD-784.0) (ORM73-C36)DENTAL CARIES EXTENDING INTO PULP (ICD-521.03) (ICD10- K02.63)Upper abdominal pain, unspecified (LHS20-G59.10)Other ovarian cyst, unspecified side (HCP10-Y65.299)Dyshidrosis [pompholyx] (GQZ72-S24.1)Impacted tooth (ICD-520.6) (FQI69-O43.1)Tobacco use (ICD-305.1) (FUV46-B45.0)[place] teeth impaction (ICD-520.6) (IQY32-L52.1)VERRUCA (ICD-078.10) (SVD26-U10.9)FH ECZEMA (ICD-V19.4)FH THYROID DISEASE (ICD-V18.1)FH SEIZURE DISORDERS (ICD-V17.2) (YOR91-K54.0)FH OBESITY (ICD-V19.8)FH MENTAL ILLNESS (ICD-V17.0) (ICD10- Z81.8)FH HYPERLIPIDEMIA (ICD-V17.4) (NAH23-N09.4)FH HYPERTENSION (ICD-V17.4) (NOI82-R19.49)FH DIABETES (ICD-V18.0) (BJI35-B24.3)FH DEPRESSION (ICD-V17.0) (PSK66-E26.8)FH ADHD (ICD-V17.2) (TDO08-C18.0)FH ASTHMA (ICD-V17.5) (ICD10- Z82.5)FH ARTHRITIS (ICD-V17.7) (PJM66-S90.61)Problem list reviewed during this update.Medication list reviewed during this update.No known medications.Current Allergies: * SULFA (Critical)PROZAC (Critical)* GLUTIN (Critical)* GRASS (Critical)* KIWI (Critical)* CHOLRINE (Critical)Allergy list reviewed during this update.Past Medical History:(reviewed - no changes required) T & A 2008 with nasal surgerycyst on overieselbow, ankle, wrist broken within months of one another - 5th grade excemahigh trigliceridesobesityMental Health Problems( Dr. Hope, [facility] ) Medication managementanxietydepressionborderline personality disorder Dental Chart: Procedures:Type - CDT Code - Description B - (D0274) Bitewings, 4 radiographic images (Performed by Suyapa Galvan RDH) B - (D0120) Periodic oral evaluation - established patient (Performed by Di Santos DDS) B - (D1110) Prophylaxis, adult (Performed by Suyapa Galvan RDH) Chart Alert:c Prophy 1 per 6 month periodchild through age 12adult 13+next avail has an apt 07/03/2016Exam 1 per 6 month periodnext avail has an apt 07/03/2016Fl2 1 per 6 month periodthrough age 20next avail 07/03/2016Bwx 4 films per 6 month periodnext avail 07/03/2016Panorex 1 every 3 yearsnext avail no historySealants every 5 yearsage 5-15no history Chart Notes:gloria (May 18 2020 2:38PM): [facility](-). CC: none. Reviewed Xrays. Exam: no caries detected. OCS: WNL, IO/ EO completed, No significant hard findings upon clinical exam.Additional PPE requirements due to COVID-19 in the dental setting, N95, surgical mask, hair covering, gown and shieldPt was cooperative. OHI given Referral: wisdom teeth, ORTHO consult- jaw clicks and class II malocclusion. NV:recallWatsSuyapa llanos RDH by gloria (05/18/2020 2:38 PM): ; abbey (May 18 2020 1:57PM): Additional PPE requirements due to COVID-19 in the dental setting, N95, surgical mask, hair covering, gown. [facility] with patient. Pt. complains of pain on wisdom teeth. Pt. grinds her teeth, recommended a nightguard. Sent referral for extraction of wisdom teeth by OS. Pt. is Class III and jaw clicks. Discussed pt. should have had ortho years ago. Take panorex at next apt. Sent referral for orthoOral cancer screening-no significant findings. Tempature taken in the lobbyAdult prophy- handscaled, bolivian- mint prophy paste, floss, 4 BW'sOH-Patient brushes once/day and flossing regularly. Pt. uses mouthwash dailyLT gen marginal biofilm and marginal/introproximal calculus on LA. Tissues are pink and healthyOHI- Advise to brush 2x a day and floss everyday. Patient is cooperative. NV- 6 month recallWatsSuyapa llanos RDH by abbey (05/18/2020 1:45 PM): Tooth Notes and Watches:- Tooth 14 Watch: Silvia Burton by esperanza (03/04/2018 11:31 AM): - Tooth 18 Watch: Jasmin Goncalves by jack (12/29/2015 7:51 AM): Silvia Rojo by esperanza (03/04/2018 11:31 AM): - Tooth 19 Watch: Jasmin Anglin by jack (12/29/2015 7:51 AM): Silvia Rojo by so (03/04/2018 11:31 AM): - Tooth 20 Watch: DistalRasSilvia wise by so (03/04/2018 11:31 AM): - Tooth 3 Watch: AracelibentleyJasmin by sbsandra (12/29/2015 7:50 AM): - Tooth 30 Watch: me sial and distalVimal Jasmin by sbarbentley (12/29/2015 7:51 AM): Silvia Rojo by sraso (03/04/2018 11:31 AM): - Tooth 31 Watch: MesialVmial Jasmin by sbsandra (12/29/2015 7:51 AM): Silvia Rojo by so (03/04/2018 11:31 AM): - Tooth 4 Watch: AracelibentleyJasmin by jack (12/29/2015 7:51 AM): Assessment & Plan Problems:Added: CROWDING OF TEETH (ICD-524.31) (NJZ08-Z55.31)Allergies:* SULFA (Critical)PROZAC (Critical)* GLUTIN (Critical)* GRASS (Critical)* KIWI (Critical)* CHOLRINE (Critical)Orders:Orthodontics Referral [CPT-73124] Multi- Service Referral [CPT-41399] Name Value Range Interpretation Code Description Data Rebekah rce(s) Supporting Document(s) ID Date Data Source [id number] 03/29/2020 01:54:32 PM EDT [facility] Current Problems: Aphthous ulcer of mout h (ICD-528.2) (BKV11-Z68.0)Gastro-esophageal reflux disease without esophagitis (ICD10- K21.9)Dyspnea, class I (ICD-786.09) (ZQI46-M44.09)Acute upper respiratory i nfection, unspecified (PYS79-H14.9)Cough (ICD-786.2) (XPV50-I33)Daily headache (ICD-784.0) (SRC15-E43)DENTAL CARIES EXTENDING INTO PULP (ICD-521.03) (ICD10- K02.63)Upper abdominal pain, unspecified (JJJ82-L81.10)Other ovarian cyst, unspecified side (KEF03-L21.299)Dyshidrosis [pompholyx] (UHE87-A26.1)Impacted tooth (ICD-520.6) (XTR99-Q46.1)Tobacco use (ICD-305.1) (UHV82-Q06.0)[place] teeth impaction (ICD-520.6) (FTL94-N92.1)VERRUCA (ICD-078.10) (NNF05-P24.9)FH ECZEMA (ICD-V19.4)FH THYROID DISEASE (ICD-V18.1)FH SEIZURE DISORDERS (ICD-V17.2) (FRC39-Q64.0)FH OBESITY (ICD-V19.8)FH MENTAL ILLNESS (ICD-V17.0) (ICD10- Z81.8)FH HYPERLIPIDEMIA (ICD-V17.4) (BPS08-I34.4)FH HYPERTENSION (ICD-V17.4) (QPK74-I41.49)FH DIABETES (ICD-V18.0) (KNL36-K72.3)FH DEPRESSION (ICD-V17.0) (NNG01-E65.8)FH ADHD (ICD-V17.2) (ZFN85-C64.0)FH ASTHMA (ICD-V17.5) (ICD10- Z82.5)FH ARTHRITIS (ICD-V17.7) (LYS01-F31.61)Problem list reviewed during this update.Medication list reviewed during this update.No known medications.Current Allergies: * SULFA (Critical)PROZAC (Critical)* GLUTIN (Critical)* GRASS (Critical)* KIWI (Critical)* CHOLRINE (Critical)Allergy list reviewed during this update. Dental Chart: Procedures:Type - CDT Code - Description B - (D0140) Limited oral evaluation - problem focused on Tooth # 24 (Performed by Dasha Ag DMD) Chart Alert:[facility] Prophy 1 per 6 month periodchild through age 12adult 13+next avail has an apt 07/03/2016Exam 1 per 6 month periodnext avail has an apt 07/03/2016Fl2 1 per 6 month periodthrough age 20next avail 07/03/2016Bwx 4 films per 6 month periodnext avail 07/03/2016Panorex 1 every 3 yearsnext avail no historySealants every 5 yearsage 5-15no history Chart Notes:kamran (Mar 29 2020 2:39PM): Additional PPE requirements due to COVID-19 in the dental setting, N95, surgical mask, hair covering, gown and shield.S: CC:" I thought i cut the front of my gum but a friend said it looks like an abcess"O: RMHx (-) Per Pt. HPI:[address]:3-4 BP: 138/91 P: 79. Lower anterior, facial of 24, 25, Canker soreA: DDS recommends warm salt water if it bothers her. , DX:canker soreP:wait 2 weeks , if still there come in for recheckInformed Pt about new pain management policy of the clinic regarding about narcotic,told pt to alternate Ibuprophen 600- 800mg and tylenol 500mg every 4 to 6 hrs for pain when needed. Assisted By: NV: P/Dasha Navarro DMD by kamran (03/29/2020 2:39 PM): Tooth Notes and Watches:- Tooth 14 Watch: Silvia Burton by esperanza (03/04/2018 11:31 AM): - Tooth 18 Watch: Jasmin Goncalves by jack (12/29/2015 7:51 AM): Silvia Rojo by esperanza (03/04/2018 11:31 AM): - Tooth 19 Watch: Jasmin Anglin by jack (12/29/2015 7:51 AM): Silvia Rojo by esperanza (03/04/2018 11:31 AM): - Tooth 20 Watch: Silvia Foote by esperanza (03/04/2018 11:31 AM): - Tooth 3 Watch: Jasmin Ornelas by jack (12/29/2015 7:50 AM): - Tooth 30 Watch: mesial and distalJasmin Celis by jack (12/29/2015 7:51 AM): Silvia Rojo by esperanza (05/2018 11:31 AM): - Tooth 31 Watch: MesialJasmin Celis by jack (12/29/2015 7:51 AM): Silvia Rojo by esperanza (03/04/2018 11:31 AM): - Tooth 4 Watch: DistalJasmin Celis by jack (12/29/2015 7:51 AM): Assessment & Plan Problems:Added: Aphthous ulcer of mouth (ICD-528.2) (MCN45-W20.0)Allergies:* SULFA (Critical)PROZAC (Critical)* GLUTIN (Critical)* GRASS (Critical)* KIWI (Critical)* CHOLRINE (Critical) Name Value Range Interpretation Code Description Data Rebekah rce(s) Supporting Document(s) Procedure
--- OUTSIDE RECORDS SUMMARY | 2020-09-29 17:59 | CCD ---
Author Author [facility] Organization [facility] Address Unknown Phone Unavailable Support Name Relationship Address Phone BARBARA DENNY Next Of Kin [address] [place] [address] UN Next Of Kin Unknown Unavailable [employer] Next Of Kin [address] [place] [address] Ellen Pierre Next Of Kin [address] [place] [address] SELF EMPLOYED Next Of Kin [address] [place] [address] BRIDGER IRVIN Next Of Kin [address] [facility] [address] [place] [address] TRENDYS Next Of Kin [address] [place] [address] TGIFS Next Of Kin [address] [place] [address] RAKAN AVERY Next Of Kin [address] [facility] [address] [place] [address] Naeem Jackson MD Next Of Kin [address] [place] [address] Jhoana Fitzpatrick Next Of Kin [address] [place] [address] Di Santos DDS Next Of Kin [address] [place], [place] [id number] JEANE GONZALEZ Next Of Kin [address] [place] [address] FAST TRAC Next Of Kin [address] [place] [address] [place] [phone] CONVERGYS Next Of Kin [address] [place] [address] MORRISALEXANDER TAI Next Of Kin [address] [place] [address] UE Next Of Kin Unknown Unavailable FLY CACERES Next Of Kin [address] [facility] [address] [place] [address] NONE MOR[place] [address] Tom NUNEZ Di Next Of Kin [address] [place] [address] VICKEY ALLEN Next Of Kin [address] [facility] [address] [place] [address] YOBANIREBEKAH Next Of Kin [address] [place] [address] ST Next Of Kin Unknown Unavailable BARBARA DOOLEY Next Of Kin [address] [place] [address] BRIDGER HILTON Next Of Kin [address] [place] [address] Rebekah Hilton ECON [address] [place] [address] [place] [address] [phone] BRIDGER HILTON ECON [address] [facility] [address] [place] [address] [phone] Rakan Avery ECON Unknown [phone] Care Team Providers Care Reference Assistant Name Role Phone Ellen Motley ASBESTOS REMOVER ASBESTOS REMOVER Unavailable Unavailable Jannette Jackson MD Unavailable Unavailable [...] Unavailable Unavailable Jannette Jackson MD Unavailable Unavailable Janentte Jackson MD Unavailable Unavailable Jannette Jackson MD Unavailable Unavailable Jannette Jackson MD Unavailable Unavailable Jannette Jackson MD Unavailable Unavailable Jannette Jackson MD Unavailable Unavailable Jannette Jackson MD Unavailable Unavailable Jannette Jackson MD Unavailable Unavailable Jannette Jackson MD Unavailable Unavailable Jannette Jackson MD Unavailable Unavailable Jannette Jackson MD Unavailable Unavailable Jannette Jackson MD Unavailable Unavailable Kailey Motley ASBESTOS REMOVER-BC Unavailable Unavailable Motley, F Ellen ASBESTOS REMOVER-BC Unavailable Unavailable Motley, F Ellen ASBESTOS REMOVER-BC Unavailable Unavailable Motley, F Ellen ASBESTOS REMOVER-BC Unavailable Unavailable Motley, F Ellen ASBESTOS REMOVER-BC Unavailable Unavailable Motley, F Ellen ASBESTOS REMOVER-BC Unavailable Unavailable Motley, F Ellen ASBESTOS REMOVER-BC Unavailable Unavailable Motley, F Ellen ASBESTOS REMOVER-BC Unavailable Unavailable Motley, F Ellen ASBESTOS REMOVER-BC Unavailable Unavailable Motley, F Ellen ASBESTOS REMOVER-BC Unavailable Unavailable Motley, F Ellen ASBESTOS REMOVER-BC Unavailable Unavailable Motley, F Ellen ASBESTOS REMOVER-BC Unavailable Unavailable Motley, F Ellen ASBESTOS REMOVER-BC Unavailable Unavailable Motley, F Ellen ASBESTOS REMOVER-BC Unavailable Unavailable Motley, F Ellen ASBESTOS REMOVER-BC Unavailable Unavailable Motley, F Ellen ASBESTOS REMOVER-BC Unavailable Unavailable Motley, F Ellen ASBESTOS REMOVER-BC Unavailable Unavailable Motley, F Ellen ASBESTOS REMOVER-BC Unavailable Unavailable Motley, F Ellen ASBESTOS REMOVER-BC Unavailable Unavailable Motley, F Ellen ASBESTOS REMOVER-BC Unavailable Unavailable Motley, F Ellen ASBESTOS REMOVER-BC Unavailable Unavailable Motley, F Ellen ASBESTOS REMOVER-BC Unavailable Unavailable Re-disclosure Warning The records that [...] is protected by Article 27-F of the [facility] Public Health law. If you continue you may have access to information: Regarding HIV / AIDS; Provided by facilities licensed or operated by the [facility] Office of Mental Health; or Provided by the [facility] Office for People With Developmental Disabilities. If such information is present, then the following [facility] mandated warning applies: This information has been [...] law may result in a fine or long-term sentence or both. A general authorization for the release of medical or other information is NOT sufficient authorization for further disc losure. Family History Family Member Name Family Member Gender Family Member Status Date o f Status Description Data Source(s) Unknown Unknown Problem [facility] ([facility]) Encounters Encounter Providers Location Date Indications Data Source(s ) Outpatient Attender: Naeem Jackson MD FP 05/19/2020 07:27:01 AM EDT [facility] Outpatient Attender: Naeem RODRIGUEZ 05/18/2020 02:40:03 PM EDT [facility] Outpatient Attender: Naeem RODRIGUEZ 05/18/2020 02:39:00 PM EDT [facility] Outpatient Attender: Naeem RODRIGUEZ 05/18/2020 12:54:00 PM EDT [facility] Outpatient Attender: Ellen RODRIGUEZ 04/28/2020 02: 29:01 PM EDT [facility] Outpatient Attender: Ellen RODRIGUEZ 04/28/2020 02: 28:02 PM EDT [facility] Outpatient Attender: MATILDE RODRIGUEZ 04/02/2020 12:02:01 AM EDT [facility] Outpatient Attender: MATILDE RODRIGUEZ 04/01/2020 02:08:00 PM EDT [facility] Outpatient Attender: MATILDE RODRIGUEZ 03/29/2020 04:22:01 PM EDT [facility] Outpatient Attender: MATILDE RODRIGUEZ 03/29/2020 02:40:01 PM EDT [facility] Outpatient Attender: Ellen RODRIGUEZ 03/29/2020 02: 40:00 PM EDT [facility] Outpatient Attender: Ellen RODRIGUEZ 03/29/2020 02: 11:01 PM EDT [facility] Outpatient Attender: MATILDE RODRIGUEZ 03/29/2020 02:11:00 PM EDT [facility] Outpatient Attender: Ellen RODRIGUEZ 03/29/2020 02: 10:00 PM EDT [facility] Outpatient Attender: MATILDE RODRIGUEZ 03/29/2020 01:57:01 PM EDT [facility] Outpatient Attender: MATILDE Motley ASBESTOS REMOVER FP 03/29/2020 01:56:01 PM EDT [facility] Outpatient Attender: MATILDE Motley ASBESTOS REMOVER FP 03/29/2020 01:55:01 PM EDT [facility] Outpatient Attender: MATILDE Motley ASBESTOS REMOVER FP 03/29/2020 01:50:00 PM EDT [facility] Outpatient Attender: MATILDE Motley ASBESTOS REMOVER FP 11/27/2019 09:01:02 PM EDT [facility] Outpatient Attender: MATILDE Motley ASBESTOS REMOVER FP 10/16/2019 08:01:11 PM EST [facility] Insurance Providers Payer name Policy type / Coverage type Policy ID Covered republican ID Covered republican's relationship to valero Policy Valero Plan Information EMEDNY [id number] SP [id number] AM-TRUST [facility] SP OTHER WORKERS COMPENSATION [id number] SP [id number] UMR [facility] [id number] DA2 [id number] UMR P [id number] S [id number] D [facility] Care [facility] S [id number] S [id number] Managed Care [facility] Community Plan O [id number] S [id number] Self Pay P [id number] S [id number] Sliding Fee Scale O [id number] S [id number] UMR P [id number] S [id number] Medicaid S [id number] S [id number] UMR P [id number] S [id number] Medicaid P [id number] S [id number] MEDICAID [id number] SP [id number] MEDICAID [id number] SP [id number] R [facility] [id number] SF2 [id number] UNHC COMMUNITY PLAN MCDHMO [id number] SP [id number] UNHC COMMUNITY PLAN MCDHMO [id number] SP [id number] UNHC COMMUNITY PLAN MCDHMO [id number] SP [id number] [facility] [id number] SP [id number] UNHC COMMUNITY PLAN MCDHMO [id number] SP [id number] UNHC COMMUNITY PLAN MCDHMO [id number] SP [id number] HMO BLUE [id number] SP [id number] HMO BLUE [id number] SP [id number] HMO BLUE [id number] SP [id number] HMO BLUE [id number] SP [id number] HMO BLUE [id number] MEDICAID M [id number] S [id number] UMR O [id number] S [id number] ANSI-Medicaid [id number] ANSI-Commercial [id number] ANSI-Medicaid [id number] ANSI-Commercial [id number] ANSI-Medicaid [id number] ANSI-Commercial [id number] ANSI-Medicaid [id number] ANSI-Commercial [id number] Medicaid [place] Medigap Part B [id number] Self [id number] Umr Commercial [id number] UMR P [id number] S [id number] MEDICAID -CLINIC [id number] UMR -O/P [id number] 18 [id number] Managed Care - Community Plan [facility] S [id number] S [id number] Medicaid O [id number] S [id number] UMR P [id number] S [id number] UMR [facility] CARE [id number] SF2 [id number] Medicaid O [id number] S [id number] Medicaid P [id number] S [id number] [facility](MCAID) O [id number] S [id number] [facility] Health Maintenance Organization (HMO) [id number] Self [id number] Self Pay P UNAVAILABLE S UNAVAILA BLE Managed Care - Community Plan [facility] P [id number] S [id number] [employer] CHP P [id number] S [id number] [facility] Community Plan Commercial [id number] Family Dependent [id number] [facility] Community Plan Commercial [id number] Family Dependent [id number] [facility] Community Plan Commercial [id number] Family Dependent [id number] [facility] Plan Commercial Family Dependent [facility] Health Maintenance Organization (HMO) [id number] Self [id number] [facility] Health Maintenance Organization (HMO) Self [facility] [id number] SP [id number] SELF PAY UNAVAILABLE UNAVAILA BLE MEDICAID -CLINIC [id number] Medicaid Dental O [id number] S [id number] HMO BLUE [id number] SP [id number] BLUE CROSS LUU PLAN [id number] SP [id number] [employer] P [id number] S [id number] [employer] P [id number] S [id number] BLUE CROSS BLUE SHIELD-CLINIC [id number] 18 [id number] BLUE CROSS BLUE SHIELD-CLINIC [id number] 18 [id number] BLUE CROSS LUU PLAN [id number] SP [id number] BLUE CROSS LUU PLAN [id number] SP [id number] BLUE CROSS BLUE SHIELD-O/P [id number] 18 [id number] BLUE CROSS BLUE SHIELD-O/P [id number] 18 [id number] BLUE CROSS BLUE SHIELD-CLINIC [id number] 18 [id number] Problems, Conditions, and Diagnoses Code Display Name Description Problem Type Effective Dates Data Source(s) 524.31 CROWDING OF TEETH CROWDING OF TEETH 05/18/2020 02:38:53 PM EDT [facility] 528.2 Aphthous ulcer of mouth Aphthous ulcer of mouth 03/29/2020 02:39:35 PM EDT [facility] Results ID Date Data Source [id number] 05/18/2020 01:15:08 PM EDT [facility] Vital SignsBlood Pressure: 120/72 Patient History Medical History:T & A 2008 with nasal surgerycyst on overieselbow, ankle, wrist broken within months of one another - 5th grade excemahigh trigliceridesobesityMental Health Problems( Dr. Hope, [facility] ) Medication managementanxietydepressionborderline personality disorderSurgical History:TonsillectomyappendectomyFamily History: ArthritisFH AsthmaFH ADHDFH DepressionFH DiabetesFH HypertensionFH HyperlipidemiaFH Mental IllnessFH ObesityFH Seizure DisordersFH Thyroid DiseaseFH EczemaSocial/Personal History:Lives with mother Current Problems: CROWDING OF TEETH (ICD-524.31) (LYW48-A39.31)Aphthous ulcer of mouth (ICD-528.2) (NVW39-N18.0)Gastro-esophageal reflux disease without esophagitis (ICD10- K21.9)Dyspnea, class I (ICD-786.09) (WLG62-C62.09)Acute upper respiratory infection, unspecified (FAF71-X71.9)Cough (ICD-786.2) (ASK95-O27)Daily headache (ICD-784.0) (HBV85-G02)DENTAL CARIES EXTENDING INTO PULP (ICD-521.03) (ICD10- K02.63)Upper abdominal pain, unspecified (EPR44-F90.10)Other ovarian cyst, unspecified side (YIW34-O67.299)Dyshidrosis [pompholyx] (TSB15-U49.1)Impacted tooth (ICD-520.6) (FJA64-S43.1)Tobacco use (ICD-305.1) (YJR88-K24.0)Burt teeth impaction (ICD-520.6) (HHA72-I39.1)VERRUCA (ICD-078.10) (ERR66-J95.9)FH ECZEMA (ICD-V19.4)FH THYROID DISEASE (ICD-V18.1)FH SEIZURE DISORDERS (ICD-V17.2) (GVX66-I72.0)FH OBESITY (ICD-V19.8)FH MENTAL ILLNESS (ICD-V17.0) (ICD10- Z81.8)FH HYPERLIPIDEMIA (ICD-V17.4) (SVL08-M85.4)FH HYPERTENSION (ICD-V17.4) (KJJ79-F59.49)FH DIABETES (ICD-V18.0) (HXF68-R36.3)FH DEPRESSION (ICD-V17.0) (LMO63-Q26.8)FH ADHD (ICD-V17.2) (JVT37-P26.0)FH ASTHMA (ICD-V17.5) (ICD10- Z82.5)FH ARTHRITIS (ICD-V17.7) (JQZ83-W07.61)Problem list reviewed during this update.Medication list reviewed during this update.No known medications.Current Allergies: * SULFA (Critical)PROZAC (Critical)* GLUTIN (Critical)* GRASS (Critical)* KIWI (Critical)* CHOLRINE (Critical)Allergy list reviewed during this update.Past Medical History:(reviewed - no changes required) T & A 2008 with nasal surgerycyst on overieselbow, ankle, wrist broken within months of one another - 5th grade excemahigh trigliceridesobesityMental Health Problems( Dr. Hope, [facility] ) Medication managementanxietydepressionborderline personality disorder Dental Chart: Procedures:Type - CDT Code - Description B - (D0274) Bitewings, 4 radiographic images (Performed by Suyapa Galvan RDH) B - (D0120) Periodic oral evaluation - established patient (Performed by Di Santos DDS) B - (D1110) Prophylaxis, adult (Performed by Suyapa Galvan RDH) Chart Alert:[facility] Prophy 1 per 6 month periodchild through age 12adult 13+next avail has an apt 07/03/2016Exam 1 per 6 month periodnext avail has an apt 07/03/2016Fl2 1 per 6 month periodthrough age 20next avail 07/03/2016Bwx 4 films per 6 month periodnext avail 07/03/2016Panorex 1 every 3 yearsnext avail no historySealants every 5 yearsage 5-15no history Chart Notes:gloria (May 18 2020 2:38PM): [facility](-). CC: none. Reviewed Xrays. Exam: no [...] setting, N95, surgical mask, hair covering, gown. [facility] with patient. Pt. complains of pain on wisdom teeth. Pt. grinds her teeth, recommended a nightguard. Sent referral for extraction of wisdom teeth by OS. Pt. is Class III and jaw clicks. Discussed pt. should have had ortho years ago. Take panorex at next apt. Sent referral for orthoOral cancer screening-no significant findings. Tempature taken in the lobbyAdult prophy- handscaled, swedish- mint prophy paste, floss, 4 BW'sOH-Patient brushes [...] (03/04/2018 11:31 AM): - Tooth 20 Watch: DistalSilvia Rojo by esperanza (03/04/2018 11:31 AM): - Tooth 3 Watch: PanchoVimal Jasmin by jack (12/29/2015 7:50 AM): - Tooth 30 Watch: me sial and distalVimal Jasmin by jack (12/29/2015 7:51 AM): Silvia Rojo by esperanza (03/04/2018 11:31 AM): - Tooth 31 Watch: MesialVimal Jasmin by jack (12/29/2015 7:51 AM): Silvia Rojo by esperanza (03/04/2018 11:31 AM): - Tooth 4 Watch: PanchoVimal Jasmin by jack (12/29/2015 7:51 AM): Assessment & Plan Problems:Added: CROWDING OF TEETH (ICD-524.31) (MJQ68-I20.31)Allergies:* SULFA (Critical)PROZAC (Critical)* GLUTIN (Critical)* GRASS (Critical)* KIWI (Critical)* CHOLRINE (Critical)Orders:Orthodontics Referral [CPT-47159] Multi- Service Referral [CPT-83499] Name Value Range Interpretation Code Description Data Rebekah rce(s) Supporting Document(s) ID Date Data Source [id number] 03/29/2020 01:54:32 PM EDT [facility] Current Problems: Aphthous ulcer of mout h (ICD-528.2) (JZG80-X87.0)Gastro-esophageal reflux disease without esophagitis (ICD10- K21.9)Dyspnea, class I (ICD-786.09) (VWQ66-M93.09)Acute upper respiratory i nfection, unspecified (EOB13-X35.9)Cough (ICD-786.2) (JHE79-X38)Daily headache (ICD-784.0) (VZL87-N69)DENTAL CARIES EXTENDING INTO PULP (ICD-521.03) (ICD10- K02.63)Upper abdominal pain, unspecified (UDG16-M78.10)Other ovarian cyst, unspecified side (CUK11-G68.299)Dyshidrosis [pompholyx] (DGI43-B01.1)Impacted tooth (ICD-520.6) (LPX74-H20.1)Tobacco use (ICD-305.1) (STK93-N82.0)Burt teeth impaction (ICD-520.6) (AKY30-I16.1)VERRUCA (ICD-078.10) (LYZ73-O19.9)FH ECZEMA (ICD-V19.4)FH THYROID DISEASE (ICD-V18.1)FH SEIZURE DISORDERS (ICD-V17.2) (JAQ27-L88.0)FH OBESITY (ICD-V19.8)FH MENTAL ILLNESS (ICD-V17.0) (ICD10- Z81.8)FH HYPERLIPIDEMIA (ICD-V17.4) (FSB82-C63.4)FH HYPERTENSION (ICD-V17.4) (TBG39-T27.49)FH DIABETES (ICD-V18.0) (TPG44-P74.3)FH DEPRESSION (ICD-V17.0) (UJK22-Q94.8)FH ADHD (ICD-V17.2) (QKQ47-X78.0)FH ASTHMA (ICD-V17.5) (ICD10- Z82.5)FH ARTHRITIS (ICD-V17.7) (QIV42-S80.61)Problem list reviewed during this update.Medication list reviewed during this update.No known medications.Current Allergies: * SULFA (Critical)PROZAC (Critical)* GLUTIN (Critical)* GRASS (Critical)* KIWI (Critical)* CHOLRINE (Critical)Allergy list reviewed during this update. Dental Chart: Procedures:Type - CDT Code - Description B - (D0613) Limited oral evaluation - problem focused on Tooth # 24 (Performed by Dasha Ag DMD) Chart Alert:[facility] Prophy 1 per 6 month periodchild [...] hrs for pain when needed. Assisted By: PD NV: P/Dasha Navarro DMD by kamran (03/29/2020 [...] (03/04/2018 11:31 AM): - Tooth 4 Watch: Jasmin Ornelas by jack (12/29/2015 7:51 AM): Assessment & Plan Problems:Added: Aphthous ulcer of mouth (ICD-528.2) (ROX15-B32.0)Allergies:* SULFA (Critical)PROZAC (Critical)* GLUTIN (Critical)* GRASS (Critical)* KIWI (Critical)* CHOLRINE (Critical) Name Value Range Interpretation Code Description Data Rebekah rce(s) Supporting Document(s) Procedure
[2020-09-29 19:29] LABS: BLOOD UREA NITROGEN 11 MG/DL (7-18); CALCIUM LEVEL 9.3 MG/DL (8.5-10.1); CARBON DIOXIDE LEVEL 30 MEQ/L (21-32); CHLORIDE LEVEL 106 MEQ/L (98-107); CREATININE FOR GFR 0.93 MG/DL (0.55-1.30); GLOMERULAR FILTRATION RATE > 60.0 (>60); GLUCOSE, FASTING 71 MG/DL (70-100); HCG, SERUM QUALITATIVE NEGATIVE (NEGATIVE); POTASSIUM SERUM 4.1 MEQ/L (3.5-5.1); SODIUM LEVEL 142 MEQ/L (136-145)
[2020-09-29 19:31] LABS: BASO % 0.2 % (0.0-1.0); EOS # 0.1 10^3/uL (0.0-0.5); EOS % 1.6 % (0.0-3.0); HEMATOCRIT 38.1 % (36.0-47.0); HEMOGLOBIN 13.1 g/dl (12.0-15.5); LYMPH # 1.3 10^3/uL (1.5-5.0); LYMPH % 23.1 % (24.0-44.0); MEAN CORPUSCULAR HEMOGLOBIN 32.9 pg (27.0-33.0); MEAN CORPUSCULAR HGB CONC 34.4 g/dl (32.0-36.5); MEAN CORPUSCULAR VOLUME 95.7 fl (80.0-96.0); MONO # 0.5 10^3/uL (0.0-0.8); MONO % 8.4 % (0.0-5.0); NEUTROPHILS # 3.7 10^3/uL (1.5-8.5); NEUTROPHILS % 66.3 % (36.0-66.0); PLATELET COUNT, AUTOMATED 276 10^3/uL (150-450); RED BLOOD COUNT 3.98 10^6/uL (4.00-5.40); WHITE BLOOD COUNT 5.6 10^3/uL (4.0-10.0)
[2020-09-29] MEDS ORDERED: LIDO5DIS41 TOP (21:06)
[2020-09-29] MEDS ORDERED: CYCL5TAB PO (21:06)
[2020-09-29] MEDS ORDERED: LIDOCAINE 5% (LIDODERM) PATCH TD ONE (21:15)
[2020-09-29 21:23] VITALS: BP 141/80
--- NOTE | 2020-09-30 08:26 | REP ---
INDICATION: midline back pain, wakes pt up at night. COMPARISON: None. TECHNIQUE: Axial noncontrast images of the thoracic spine with coronal and sagittal reformations. FINDINGS: Thoracic vertebral bodies are intact and without acute fracture/compression injury or subluxation. Alignment and kyphosis maintained. Disc spaces are normal. Spinal canal is patent and normal. Posterior elements and spinous processes are intact. Paravertebral soft tissues are normal. IMPRESSION: Normal thoracic spine CT. No evidence for acute trauma/injury. <Electronically signed by Toño Victor > 09/30/20 [id number]
[2020-09-30] MEDS ORDERED: **NOTE PATIENT COMMENT** MISC XX SCH (21:00)
== END 2020-09-29 21:24 | disposition home or self-care (01) ==
LOC: M ED 17:00
DX: S29.019A Strain of muscle and tendon of unspecified wall of thorax, initial encounter (principal); Z88.2 Allergy status to sulfonamides; Z88.8 Allergy status to other drugs, medicaments and biological substances; X58.XXXA Exposure to other specified factors, initial encounter; Y92.9 Unspecified place or not applicable; Y93.9 Activity, unspecified; Y99.9 Unspecified external cause status; F41.9 Anxiety disorder, unspecified; F32.9 Major depressive disorder, single episode, unspecified; R51.9 Headache, unspecified; F60.3 Borderline personality disorder; Z87.440 Personal history of urinary (tract) infections; F17.200 Nicotine dependence, unspecified, uncomplicated; F12.10 Cannabis abuse, uncomplicated

== ENCOUNTER → 2020-10-10 | Outpatient (REF) | payer MEDICAID ==
[~2020-10-10] MED LIST changes: +CYCL5TAB PO; +LIDO5DIS41 TOP
[2020-10-10 15:09] LABS: ALBUMIN 4.3 GM/DL (3.2-5.2); ALT/SGPT 66 U/L (12-78); BILIRUBIN,TOTAL 1.3 MG/DL (0.2-1.0); BLOOD UREA NITROGEN 9 MG/DL (7-18); CALCIUM LEVEL 9.7 MG/DL (8.5-10.1); CARBON DIOXIDE LEVEL 26 MEQ/L (21-32); CHLORIDE LEVEL 103 MEQ/L (98-107); CHOLESTEROL LEVEL 235 MG/DL (<200); CHOLESTEROL RISK RATIO 6.911 (<5); CREATININE FOR GFR 0.87 MG/DL (0.55-1.30); GLOMERULAR FILTRATION RATE > 60.0 (>60); GLUCOSE, FASTING 86 MG/DL (70-100); HDL CHOLESTEROL 34 MG/DL (>40); LDL CHOLESTEROL 139 MG/DL (<100); NON-HDL-C 201 MG/DL; POTASSIUM SERUM 4.5 MEQ/L (3.5-5.1); SODIUM LEVEL 138 MEQ/L (136-145); THYROID STIMULATING HORMONE 0.786 uIU/ML (0.358-3.740); TOTAL PROTEIN 7.9 GM/DL (6.4-8.2); TRIGLYCERIDES LEVEL 308 MG/DL (<150)
== END ==
LOC: M PLALAB 09:40
PROVIDERS: ATTEND Nurse Practitioner Family
DX: E78.5 Hyperlipidemia, unspecified (principal)

== ENCOUNTER → 2020-10-11 | Outpatient (CLI) | payer OTHER, MEDICAID ==
--- NOTE | 2020-10-12 03:52 | REP ---
INDICATION: R10L2 PELVIC PAIN COMPARISON: None. TECHNIQUE: Transabdominal pelvic ultrasound followed by transvaginal examination for better evaluation of the endometrium and adnexa with color evaluation of the ovaries. FINDINGS: Bladder is collapsed. Anteverted uterus measures 7.6 x 3.7 x 4.4 cm. The endometrial complex measures 14.6 mm thickness with few small nonspecific incidental endometrial cysts. No discrete uterine or endometrial abnormalities are appreciated. Bilateral ovaries are normal in appearance and vascularity without evidence for torsion. Right ovary measures 2.0 x 1.6 x 2.1 cm; left ovary measures 3.3 x 1.6 x 2.1 cm. No pelvic fluid or adnexal mass lesion. IMPRESSION: Relatively normal pelvic ultrasound. Mildly thickened endometrial complex with small cystic changes may be related to menstrual cycle. <Electronically signed by Toño Victor > 10/12/20 [id number]
== END ==
LOC: M WHC 14:10
PROVIDERS: ATTEND Nurse Practitioner Family
DX: R10.2 Pelvic and perineal pain (principal)

== ENCOUNTER → 2020-10-26 | Outpatient (REF) | payer OTHER, MEDICAID | LOC: M SFHCPLAZ 09:48 | PROVIDERS: ATTEND Nurse Practitioner Family | DX: Z12.4 Encounter for screening for malignant neoplasm of cervix (principal) ==

== ENCOUNTER → 2020-12-13 | Outpatient (CLI) | payer OTHER ==
--- NOTE | 2020-12-13 18:48 | REP ---
INDICATION: PAIN IN RIGHT WRIST, FINGER(S) COMPARISON: None. TECHNIQUE: AP, lateral, bilateral oblique views right 1st digit. FINDINGS: The osseous structures and joint spaces are intact and normal. There is no evidence for acute fracture or dislocation. Surrounding soft tissues are unremarkable. No subcutaneous emphysema or radiodense foreign body. IMPRESSION: Normal examination. No acute fracture or dislocation. <Electronically signed by Toño Victor > 12/13/20 [id number]
--- NOTE | 2020-12-13 18:49 | REP ---
INDICATION: PAIN IN RIGHT WRIST, FINGER(S) COMPARISON: None. TECHNIQUE: AP, lateral, bilateral oblique views right wrist. FINDINGS: The carpal bones, surrounding osseous structures, soft tissues, and joint spaces are normal. There is no evidence for acute fracture or dislocation. No subcutaneous emphysema or radiodense foreign body. IMPRESSION: Normal wrist series. No acute fracture or dislocation. <Electronically signed by Toño Victor > 12/13/20 9050
== END ==
LOC: M RAD 17:46
PROVIDERS: ATTEND Physician Assistant
DX: M25.521 Pain in right elbow (principal); M79.644 Pain in right finger(s)

== ENCOUNTER → 2021-03-06 | Outpatient (CLI) | payer OTHER, MEDICAID ==
[2021-03-06 12:19] LABS: ALBUMIN 4.2 GM/DL (3.2-5.2); ALT/SGPT 57 U/L (12-78); BILIRUBIN,TOTAL 1.5 MG/DL (0.2-1.0); BLOOD UREA NITROGEN 12 MG/DL (7-18); CALCIUM LEVEL 9.3 MG/DL (8.5-10.1); CARBON DIOXIDE LEVEL 26 MEQ/L (21-32); CHLORIDE LEVEL 105 MEQ/L (98-107); CHOLESTEROL LEVEL 229 MG/DL (<200); CHOLESTEROL RISK RATIO 7.387 (<5); CREATININE FOR GFR 0.73 MG/DL (0.55-1.30); GLOMERULAR FILTRATION RATE > 60.0 (>60); GLUCOSE, FASTING 98 MG/DL (70-100); HDL CHOLESTEROL 31 MG/DL (>40); NON-HDL-C 198 MG/DL; POTASSIUM SERUM 4.6 MEQ/L (3.5-5.1); SODIUM LEVEL 138 MEQ/L (136-145); TOTAL PROTEIN 7.8 GM/DL (6.4-8.2); TRIGLYCERIDES LEVEL 579 MG/DL (<150)
== END ==
LOC: M PLALAB 08:25
PROVIDERS: ATTEND Nurse Practitioner Family
DX: E78.5 Hyperlipidemia, unspecified (principal)

== ENCOUNTER → 2021-08-30 | Outpatient (CLI) | payer OTHER ==
[2021-08-30 11:09] LABS: ALBUMIN 4.1 GM/DL (3.2-5.2); ALT/SGPT 53 U/L (12-78); BILIRUBIN,TOTAL 1.1 MG/DL (0.2-1.0); BLOOD UREA NITROGEN 14 MG/DL (7-18); CALCIUM LEVEL 9.1 MG/DL (8.5-10.1); CARBON DIOXIDE LEVEL 29 MEQ/L (21-32); CHLORIDE LEVEL 106 MEQ/L (98-107); CHOLESTEROL LEVEL 156 MG/DL (<200); CREATININE FOR GFR 0.81 MG/DL (0.55-1.30); GLOMERULAR FILTRATION RATE > 60.0 (>60); GLUCOSE, FASTING 105 MG/DL (70-100); HDL CHOLESTEROL 48 MG/DL (>40); LDL CHOLESTEROL 84 MG/DL (<100); NON-HDL-C 108 MG/DL; POTASSIUM SERUM 4.5 MEQ/L (3.5-5.1); SODIUM LEVEL 139 MEQ/L (136-145); TOTAL PROTEIN 7.4 GM/DL (6.4-8.2); TRIGLYCERIDES LEVEL 122 MG/DL (<150)
== END ==
LOC: M PLALAB 08:04
PROVIDERS: ATTEND Nurse Practitioner Family
DX: E78.5 Hyperlipidemia, unspecified (principal)

== ENCOUNTER → 2021-12-14 | Outpatient (REF) | payer OTHER ==
[2021-12-14 15:28] LABS: GC DNA AMPLIFICATION NEGATIVE (NEGATIVE)
== END ==
LOC: M PLALAB 11:21
PROVIDERS: ATTEND Obstetrics & Gynecology
DX: Z12.4 Encounter for screening for malignant neoplasm of cervix (principal)

== ENCOUNTER → 2021-12-25 | Outpatient (CLI) | payer OTHER | LOC: M WHC 14:29 | PROVIDERS: ATTEND Obstetrics & Gynecology | DX: Z31.9 Encounter for procreative management, unspecified (principal) ==

== ENCOUNTER → 2022-02-20 | Outpatient (REF) | payer OTHER ==
[~2022-02-20] MED LIST changes: -ERYT-52 PO; +ERYT-88 PO
== END ==
LOC: M SFHCWAGY 17:23
PROVIDERS: ATTEND Obstetrics & Gynecology
DX: R87.612 Low grade squamous intraepithelial lesion on cytologic smear of cervix (LGSIL) (principal)

== ENCOUNTER → 2022-03-01 | Outpatient (CLI) | payer OTHER ==
[2022-03-01 13:55] LABS: ALT/SGPT 55 U/L (12-78); BILIRUBIN,TOTAL 2.2 MG/DL (0.2-1.0); BLOOD UREA NITROGEN 11 MG/DL (7-18); CALCIUM LEVEL 9.4 MG/DL (8.5-10.1); CARBON DIOXIDE LEVEL 26 MEQ/L (21-32); CHLORIDE LEVEL 107 MEQ/L (98-107); CHOLESTEROL LEVEL 196 MG/DL (<200); CHOLESTEROL RISK RATIO 5.444 (<5); CREATININE FOR GFR 0.78 MG/DL (0.55-1.30); GLOMERULAR FILTRATION RATE > 60.0 (>60); GLUCOSE, FASTING 86 MG/DL (70-100); HDL CHOLESTEROL 36 MG/DL (>40); LDL CHOLESTEROL 116 MG/DL (<100); NON-HDL-C 160 MG/DL; POTASSIUM SERUM 4.3 MEQ/L (3.5-5.1); SODIUM LEVEL 136 MEQ/L (136-145); TOTAL PROTEIN 7.3 GM/DL (6.4-8.2); TRIGLYCERIDES LEVEL 222 MG/DL (<150)
== END ==
LOC: M PLALAB 10:19
PROVIDERS: ATTEND Nurse Practitioner Family
DX: E78.5 Hyperlipidemia, unspecified (principal)

== ENCOUNTER → 2023-11-01 | Outpatient (REF) | payer OTHER ==
[2023-11-01 14:02] LABS: RSV AMPLIFICATION NEGATIVE (NEGATIVE)
== END ==
LOC: M SFHCPLAZ 12:57
PROVIDERS: ATTEND Nurse Practitioner Family
DX: R09.89 Other specified symptoms and signs involving the circulatory and respiratory systems (principal)

== ENCOUNTER → 2023-11-26 | Outpatient (REF) | payer OTHER | LOC: M SFHCPLAZ 12:13 | PROVIDERS: ATTEND Student in an Organized Health Care Education/Training Program | DX: R09.89 Other specified symptoms and signs involving the circulatory and respiratory systems (principal) ==

== ENCOUNTER → 2024-03-24 | Outpatient (CLI) | payer OTHER ==
[~2024-03-24] MED LIST changes: +ONDA-282 PO; -ONDA4TAB6 PO
[2024-03-24 09:17] LABS: BASO % 0.4 % (0.0-1.0); EOS # 0.1 10^3/uL (0.0-0.5); EOS % 2.2 % (0.0-3.0); HEMOGLOBIN 13.2 g/dl (12.0-15.5); LYMPH # 1.5 10^3/uL (1.5-5.0); LYMPH % 29.5 % (24.0-44.0); MEAN CORPUSCULAR HEMOGLOBIN 32.8 pg (27.0-33.0); MEAN CORPUSCULAR HGB CONC 34.7 g/dl (32.0-36.5); MEAN CORPUSCULAR VOLUME 94.3 fl (80.0-96.0); MONO # 0.4 10^3/uL (0.0-0.8); MONO % 7.1 % (2.0-8.0); NEUTROPHILS % 60.8 % (36.0-66.0); PLATELET COUNT, AUTOMATED 292 10^3/uL (150-450); RED BLOOD COUNT 4.03 10^6/uL (4.00-5.40); WHITE BLOOD COUNT 4.9 10^3/uL (4.0-10.0)
[2024-03-24 09:41] LABS: ALBUMIN 3.8 G/DL (3.2-5.2); ALKALINE PHOSPHATASE 73 U/L (46-116); ALT/SGPT 47 U/L (7.0-40); AST/SGOT 21 U/L (<34); BILIRUBIN,TOTAL 1.7 MG/DL (0.3-1.2); BLOOD UREA NITROGEN 12 MG/DL (9-23); CALCIUM LEVEL 8.6 MG/DL (8.5-10.1); CARBON DIOXIDE LEVEL 26 MMOL/L (20-31); CHLORIDE LEVEL 106 MMOL/L (98-107); CHOLESTEROL LEVEL 194 MG/DL (<200); CHOLESTEROL RISK RATIO 5.72 (<5); CREATININE FOR GFR 0.77 MG/DL (0.55-1.30); GLOMERULAR FILTRATION RATE > 60.0 (>60); GLUCOSE, FASTING 96 MG/DL (60-100); HDL CHOLESTEROL 33.9 MG/DL (>40); LDL CHOLESTEROL 113.3 MG/DL (<100); NON-HDL-C 160.1 MG/DL; POTASSIUM SERUM 4.1 MMOL/L (3.5-5.1); SODIUM LEVEL 137 MMOL/L (136-145); TOTAL PROTEIN 7.2 G/DL (5.7-8.2); TRIGLYCERIDES LEVEL 234 MG/DL (<150)
[2024-03-24 09:43] LABS: FREE T4 1.09 NG/DL (0.89-1.76); THYROID STIMULATING HORMONE 0.687 uIU/ML (0.55-4.78)
== END ==
LOC: M LAB 08:27
PROVIDERS: ATTEND Nurse Practitioner Family
DX: Z00.01 Encounter for general adult medical examination with abnormal findings (principal); E78.5 Hyperlipidemia, unspecified; R53.83 Other fatigue

== ENCOUNTER → 2024-12-03 | Outpatient (CLI) | payer OTHER ==
[~2024-12-03] MED LIST changes: -CYCL5TAB PO; +CYCL5TAB4 PO
[2024-12-03 15:49] LABS: BASO % 0.3 % (0.0-1.0); EOS # 0.1 10^3/uL (0.0-0.5); EOS % 1.1 % (0.0-3.0); HEMATOCRIT 39.5 % (36.0-47.0); HEMOGLOBIN 13.9 g/dl (12.0-15.5); LYMPH # 1.7 10^3/uL (1.5-5.0); LYMPH % 21.8 % (24.0-44.0); MEAN CORPUSCULAR HEMOGLOBIN 32.4 pg (27.0-33.0); MEAN CORPUSCULAR HGB CONC 35.2 g/dl (32.0-36.5); MEAN CORPUSCULAR VOLUME 92.1 fl (80.0-96.0); MONO # 0.6 10^3/uL (0.0-0.8); MONO % 7.9 % (2.0-8.0); NEUTROPHILS # 5.2 10^3/uL (1.5-8.5); NEUTROPHILS % 68.5 % (36.0-66.0); PLATELET COUNT, AUTOMATED 335 10^3/uL (150-450); RED BLOOD COUNT 4.29 10^6/uL (4.00-5.40); WHITE BLOOD COUNT 7.6 10^3/uL (4.0-10.0)
[2024-12-03 16:17] LABS: HCG, SERUM QUANTITATIVE 678.7 MIU/ML (<4.2)
[2024-12-03 16:18] LABS: ALBUMIN 4.3 G/DL (3.2-5.2); ALKALINE PHOSPHATASE 76 U/L (35-104); ALT/SGPT 37 U/L (7.0-40); AST/SGOT 19 U/L (<34); BILIRUBIN,TOTAL 1.8 MG/DL (0.3-1.2); BLOOD UREA NITROGEN 9 MG/DL (9-23); CALCIUM LEVEL 9.2 MG/DL (8.5-10.1); CARBON DIOXIDE LEVEL 27 MMOL/L (20-31); CHLORIDE LEVEL 104 MMOL/L (98-107); CHOLESTEROL LEVEL 202 MG/DL (<200); CHOLESTEROL RISK RATIO 6.04 (<5); CREATININE FOR GFR 0.69 MG/DL (0.55-1.30); GLOMERULAR FILTRATION RATE > 90.0 (>60); GLUCOSE, FASTING 74 MG/DL (60-100); HDL CHOLESTEROL 33.4 MG/DL (>40); NON-HDL-C 168.6 MG/DL; POTASSIUM SERUM 4.1 MMOL/L (3.5-5.1); SODIUM LEVEL 140 MMOL/L (136-145); TOTAL PROTEIN 7.7 G/DL (5.7-8.2); TRIGLYCERIDES LEVEL 243 MG/DL (<150)
[2024-12-03 16:21] LABS: FREE T4 1.19 NG/DL (0.89-1.76); THYROID STIMULATING HORMONE 0.987 uIU/ML (0.55-4.78)
== END ==
LOC: M PLALAB 14:09
PROVIDERS: ATTEND Nurse Practitioner Family
DX: Z32.01 Encounter for pregnancy test, result positive (principal); R53.83 Other fatigue; E78.5 Hyperlipidemia, unspecified

== ENCOUNTER → 2025-01-13 | Outpatient (CLI) | payer OTHER ==
[~2025-01-13] MED LIST changes: +LIDO1ADH93 TOP; -LIDO5DIS41 TOP
[2025-01-13 10:24] LABS: MEAN CORPUSCULAR HEMOGLOBIN 32.4 pg (27.0-33.0); MEAN CORPUSCULAR VOLUME 92.6 fl (80.0-96.0); PLATELET COUNT, AUTOMATED 278 10^3/uL (150-450); RED BLOOD COUNT 4.32 10^6/uL (4.00-5.40); WHITE BLOOD COUNT 8.3 10^3/uL (4.0-10.0)
[2025-01-13 10:54] LABS: HIV 1&2 SCREEN NEGATIVE (NEGATIVE)
[2025-01-13 11:03] LABS: HEPATITIS C VIRUS ABY INDEX 0.05 INDEX (<0.8)
[2025-01-13 13:49] LABS: GC DNA AMPLIFICATION NEGATIVE (NEGATIVE)
[2025-01-14 16:20] LABS: Trichomonas vaginalis (AMP) NOT DETECTED (NEGATIVE)
== END ==
LOC: M PLALAB 07:39
PROVIDERS: ATTEND Obstetrics & Gynecology
DX: Z34.01 Encounter for supervision of normal first pregnancy, first trimester (principal); Z81.0 Family history of intellectual disabilities

== ENCOUNTER → 2025-03-16 | Outpatient (CLI) | payer OTHER | LOC: M WHC 06:34 | PROVIDERS: ATTEND Nurse Practitioner Family | DX: Z34.82 Encounter for supervision of other normal pregnancy, second trimester (principal); Z3A.20 20 weeks gestation of pregnancy ==

== ENCOUNTER 2025-03-23 23:42 | Emergency (ER) | payer OTHER ==
[~2025-03-23] VITALS: Ht 172.7 cm; Wt 99.1 kg
[2025-03-23 23:45] VITALS: BP 140/90; TEMP 97.3; O2SAT 100
[2025-03-24] MEDS ORDERED: PRENTAB9 PO (00:19)
== END 2025-03-23 23:55 | disposition admitted as inpatient to this hospital (09) ==
LOC: M ED 23:42
DX: Z53.21 Procedure and treatment not carried out due to patient leaving prior to being seen by health care provider (principal)

== ENCOUNTER 2025-03-23 23:55 | Outpatient (CLI) | payer OTHER ==
[~2025-03-23] VITALS: Ht 172.7 cm; Wt 100.3 kg
[2025-03-24 00:17] VITALS: BP 116/76
[2025-03-24] MEDS ORDERED: PRENTAB9 PO (00:19)
[2025-03-24 01:37] LABS: KETONE, URINE AUTO RFX NEGATIVE (NEGATIVE); LEUKOCYTE ESTERASE UR AUTO RFX NEGATIVE (NEGATIVE); NITRITE, URINE AUTO RFX NEGATIVE (NEGATIVE); RBC, URINE AUTO RFX 2 /HPF (0-3); SQUAM EPITHELIAL CELL UR AURFX 3 /HPF (0-6); WBC, URINE AUTO RFX 2 /HPF (0-3)
[2025-03-24] MEDS: ACETAMINOPHEN 500 MG TAB PO ONE (01:59)
[2025-03-24 02:00] VITALS: BP 115/75
[2025-03-24 02:16] LABS: BASO # 0.0 10^3/uL (0.0-0.2); BASO % 0.2 % (0.0-1.0); EOS # 0.2 10^3/uL (0.0-0.5); EOS % 1.5 % (0.0-3.0); LYMPH # 1.7 10^3/uL (1.5-5.0); LYMPH % 17.4 % (24.0-44.0); MONO # 0.7 10^3/uL (0.0-0.8); MONO % 6.9 % (2.0-8.0); NEUTROPHILS # 7.2 10^3/uL (1.5-8.5); NEUTROPHILS % 73.4 % (36.0-66.0); PLATELET COUNT, AUTOMATED 254 10^3/uL (150-450)
[2025-03-24 02:41] LABS: ALT/SGPT 17 U/L (7.0-40); AST/SGOT 17 U/L (<34); CALCIUM LEVEL 9.3 MG/DL (8.5-10.1); CARBON DIOXIDE LEVEL 24 MMOL/L (20-31); CHLORIDE LEVEL 105 MMOL/L (98-107); CREATININE FOR GFR 0.59 MG/DL (0.55-1.30); GLOMERULAR FILTRATION RATE > 90.0 (>60); POTASSIUM SERUM 4.2 MMOL/L (3.5-5.1); SODIUM LEVEL 140 MMOL/L (136-145)
[2025-03-24 05:04] VITALS: BP 135/88
== END 2025-03-24 04:47 | disposition home or self-care (01) ==
LOC: M LDO 23:55
PROVIDERS: ATTEND Obstetrics & Gynecology
DX: O26.892 Other specified pregnancy related conditions, second trimester (principal); O99.212 Obesity complicating pregnancy, second trimester; O99.342 Other mental disorders complicating pregnancy, second trimester; O99.612 Diseases of the digestive system complicating pregnancy, second trimester; R10.2 Pelvic and perineal pain; E66.09 Other obesity due to excess calories; F41.9 Anxiety disorder, unspecified; K58.1 Irritable bowel syndrome with constipation; Z3A.20 20 weeks gestation of pregnancy
CPT/HCPCS: 36415; 59025; 80053; 81001; 85025; G0463

== ENCOUNTER → 2025-04-05 | Outpatient (CLI) | payer OTHER ==
[~2025-04-05] MED LIST changes: +PRENTAB9 PO
== END ==
LOC: M WHC 06:31
PROVIDERS: ATTEND Nurse Practitioner Family
DX: Z34.82 Encounter for supervision of other normal pregnancy, second trimester (principal); Z3A.22 22 weeks gestation of pregnancy

== ENCOUNTER → 2025-04-22 | Outpatient (CLI) | payer OTHER ==
[~2025-04-22] MED LIST changes: -IBUP-1022 PO; +IBUP600T42 PO
== END ==
LOC: M WHC 08:02
PROVIDERS: ATTEND Advanced Practice Midwife
DX: Z34.02 Encounter for supervision of normal first pregnancy, second trimester (principal)

== ENCOUNTER → 2025-05-04 | Outpatient (CLI) | payer OTHER ==
[2025-05-04 10:17] LABS: PLATELET COUNT, AUTOMATED 292 10^3/uL (150-450)
[2025-05-04 10:24] LABS: GLUCOSE CHALLENGE TEST 1 HOUR 128 MG/DL (LESS THAN 140)
[2025-05-04 10:58] LABS: HIV 1&2 SCREEN NEGATIVE (NEGATIVE)
[2025-05-04 11:06] LABS: HEPATITIS C VIRUS ABY INDEX < 0.02 INDEX (<0.8)
[2025-05-04 11:21] LABS: Trichomonas vaginalis (AMP) NOT DETECTED (NEGATIVE)
[2025-05-04 11:44] LABS: GC DNA AMPLIFICATION NEGATIVE (NEGATIVE)
== END ==
LOC: M PLALAB 07:40
PROVIDERS: ATTEND Advanced Practice Midwife
DX: Z36.89 Encounter for other specified antenatal screening (principal)

== ENCOUNTER → 2025-05-18 | Outpatient (CLI) | payer OTHER | LOC: M WHC 06:41 | PROVIDERS: ATTEND Advanced Practice Midwife | DX: Z34.02 Encounter for supervision of normal first pregnancy, second trimester (principal) ==

== ENCOUNTER 2025-06-01 16:21 | Emergency (ER) | payer OTHER ==
[2025-06-01] MEDS ORDERED: ASPI81CH33 PO (16:45)
[2025-06-01] MEDS ORDERED: ACETAMINOPHEN 500 MG TAB PO ONE (17:15)
[2025-06-01] MEDS ORDERED: LR 1,000 ML IV ONE (17:15)
[2025-06-02] MEDS ORDERED: CYCL5TAB4 PO (01:54)
[2025-06-02] MEDS ORDERED: LIDO1ADH93 TD (01:54)
== END 2025-06-01 16:25 | disposition admitted as inpatient to this hospital (09) ==
LOC: M ED 16:21
DX: Z53.21 Procedure and treatment not carried out due to patient leaving prior to being seen by health care provider (principal)

== ENCOUNTER 2025-06-01 16:28 | Outpatient (CLI) | payer OTHER ==
[~2025-06-01] VITALS: Ht 172.7 cm; Wt 108.6 kg
[2025-06-01] MEDS ORDERED: ASPI81CH33 PO (16:45)
[2025-06-01 16:48] VITALS: BP 124/78
[2025-06-01] MEDS ORDERED: HOME MED LIST COMPLETE! XX SCH (16:50)
[2025-06-01] MEDS: ACETAMINOPHEN 500 MG TAB PO ONE (17:53)
[2025-06-01 18:05] LABS: PLATELET COUNT, AUTOMATED 313 10^3/uL (150-450)
[2025-06-01] MEDS: LR 1,000 ML IV ONE (18:15)
[2025-06-01 18:22] VITALS: BP 124/66
[2025-06-01 18:31] LABS: ALT/SGPT 13 U/L (7.0-40); AST/SGOT 18 U/L (<34); CALCIUM LEVEL 8.8 MG/DL (8.5-10.1); CARBON DIOXIDE LEVEL 21 MMOL/L (20-31); CHLORIDE LEVEL 105 MMOL/L (98-107); CREATININE FOR GFR 0.55 MG/DL (0.55-1.30); GLOMERULAR FILTRATION RATE > 90.0 (>60); POTASSIUM SERUM 3.7 MMOL/L (3.5-5.1); SODIUM LEVEL 138 MMOL/L (136-145)
[2025-06-01] MEDS: CYCLOBENZAPRINE 5 MG TABLET PO ONE (20:45)
[2025-06-02] MEDS ORDERED: LIDO1ADH93 TD (01:54)
[2025-06-02] MEDS ORDERED: CYCL5TAB4 PO (01:54)
== END 2025-06-01 17:43 | disposition short-term general hospital (02) ==
LOC: M LDO 16:28
PROVIDERS: ATTEND Student in an Organized Health Care Education/Training Program
DX: O26.893 Other specified pregnancy related conditions, third trimester (principal); R10.12 Left upper quadrant pain; Z3A.30 30 weeks gestation of pregnancy
CPT/HCPCS: 59025; 80053; 82248; 83690; 85027; G0463

== ENCOUNTER 2025-06-01 21:44 | Emergency (ER) | payer OTHER ==
[~2025-06-01] VITALS: Ht 172.7 cm; Wt 104.5 kg
[~2025-06-01 21:44] MED LIST changes: +ASPI81CH33 PO
[2025-06-02] MEDS: ACETAMINOPHEN *IV* 1,000 MG in IV 1 EA IV ONE (00:35)
[2025-06-02] MEDS: LIDOCAINE 5% PATCH TD ONE (00:47)
[2025-06-02] MEDS ORDERED: CYCL5TAB4 PO (01:54)
[2025-06-02] MEDS ORDERED: LIDO1ADH93 TD (01:54)
[2025-06-02 02:00] VITALS: BP 125/76; TEMP 97.9; O2SAT 100
== END 2025-06-02 02:04 | disposition home or self-care (01) ==
LOC: M ED 21:44
DX: M94.0 Chondrocostal junction syndrome [Tietze] (principal); F32.A Depression, unspecified; F60.3 Borderline personality disorder; Z90.49 Acquired absence of other specified parts of digestive tract; Z88.2 Allergy status to sulfonamides; Z88.8 Allergy status to other drugs, medicaments and biological substances; Z79.82 Long term (current) use of aspirin; Z79.899 Other long term (current) drug therapy

== ENCOUNTER → 2025-06-03 | Outpatient (CLI) | payer OTHER ==
[~2025-06-03] MED LIST changes: +LIDO1ADH93 TD
== END ==
LOC: M WHC 15:54
PROVIDERS: ATTEND Nurse Practitioner Family
DX: O41.93X0 Disorder of amniotic fluid and membranes, unspecified, third trimester, not applicable or unspecified (principal); Z3A.30 30 weeks gestation of pregnancy

== ENCOUNTER → 2025-07-08 | Outpatient (REF) | payer OTHER | LOC: M PLALAB 11:32 | PROVIDERS: ATTEND Specialist | DX: Z34.80 Encounter for supervision of other normal pregnancy, unspecified trimester (principal) ==

== ENCOUNTER 2025-07-26 14:13 | Outpatient (CLI) | payer OTHER ==
[~2025-07-26] VITALS: Ht 172.7 cm; Wt 120.7 kg
[2025-07-26 14:33] VITALS: BP 133/87
[2025-07-26] MEDS ORDERED: ACET500P3 PO (14:34)
[2025-07-26 15:49] LABS: BASO # 0.0 10^3/uL (0.0-0.2); BASO % 0.1 % (0.0-1.0); EOS # 0.1 10^3/uL (0.0-0.5); EOS % 1.0 % (0.0-3.0); LYMPH # 1.5 10^3/uL (1.5-5.0); LYMPH % 19.3 % (24.0-44.0); MONO # 0.5 10^3/uL (0.0-0.8); MONO % 6.6 % (2.0-8.0); NEUTROPHILS # 5.7 10^3/uL (1.5-8.5); NEUTROPHILS % 72.4 % (36.0-66.0); PLATELET COUNT, AUTOMATED 276 10^3/uL (150-450)
[2025-07-26 16:15] LABS: LDH LACTATE DEHYDROGENASE 195 U/L (120-246)
[2025-07-26 16:16] LABS: ALT/SGPT 12 U/L (7.0-40); AST/SGOT 15 U/L (<34); CREATININE FOR GFR 0.55 MG/DL (0.55-1.30); GLOMERULAR FILTRATION RATE > 90.0 (>60)
[2025-07-26 16:31] LABS: TOTAL PROTEIN,RANDOM URINE 43.5 MG/DL (0.0-14.0)
== END 2025-07-26 18:52 | disposition home or self-care (01) ==
LOC: M LDO 14:13
PROVIDERS: ATTEND Advanced Practice Midwife
DX: O26.893 Other specified pregnancy related conditions, third trimester (principal); R10.30 Lower abdominal pain, unspecified; R10.A3 Flank pain, bilateral; M54.50 Low back pain, unspecified; O99.213 Obesity complicating pregnancy, third trimester; O99.343 Other mental disorders complicating pregnancy, third trimester; O99.612 Diseases of the digestive system complicating pregnancy, second trimester; K58.9 Irritable bowel syndrome, unspecified; F41.9 Anxiety disorder, unspecified; E66.09 Other obesity due to excess calories; Z88.1 Allergy status to other antibiotic agents; Z88.2 Allergy status to sulfonamides; Z88.8 Allergy status to other drugs, medicaments and biological substances; Z91.018 Allergy to other foods; Z3A.38 38 weeks gestation of pregnancy
CPT/HCPCS: 36415; 59025; 82247; 82570; 83615; 84156; 84450; 84460; 84550; 85025; G0463

== ENCOUNTER 2025-07-29 09:24 | Inpatient (IN) | payer OTHER ==
[~2025-07-29] VITALS: Ht 172.7 cm; Wt 121.2 kg
[2025-07-29] VITALS (10 sets, daily range): BP systolic 125–145; BP diastolic 70–93
[~2025-07-29 09:24] MED LIST changes: +ACET500P3 PO
[2025-07-29] MEDS ORDERED: ACET-907 PO (09:36)
[2025-07-29] MEDS ORDERED: HOME MED LIST COMPLETE! XX SCH (09:40)
[2025-07-29] MEDS ORDERED: METHYLERGONOVINE MALEATE 0.2 MG/ML 1 ML VIAL IM PRN (10:25)
[2025-07-29] MEDS ORDERED: CALCIUM CARBONATE 500 MG CHEW U/D PO PRN (10:25)
[2025-07-29] MEDS ORDERED: OXYTOCIN DRIP 30 UNITS in IV 1 EA IV PRN (10:25)
[2025-07-29] MEDS ORDERED: LIDOCAINE 1% MDV 20 ML VIAL INFIL PRN (10:25)
[2025-07-29] MEDS ORDERED: OXYTOCIN INJ 10UNITS/ML 1ML VIAL IM PRN (10:25)
[2025-07-29] MEDS ORDERED: TRANEXAMIC ACID INJection 1,000 MG in NS 100 ML IV PRN (10:25)
[2025-07-29 10:31] LABS: PLATELET COUNT, AUTOMATED 286 10^3/uL (150-450)
[2025-07-29] MEDS: miSOPROStol 25 MCG 1/4 TABLET PO ONE (10:58)
[2025-07-29 11:26] LABS: HIV 1&2 SCREEN NEGATIVE (NEGATIVE)
[2025-07-29 11:32] LABS: TOTAL PROTEIN,RANDOM URINE 48.3 MG/DL (0.0-14.0)
[2025-07-29 11:33] LABS: HEPATITIS C VIRUS ABY INDEX < 0.02 INDEX (<0.8)
[2025-07-29] MEDS: miSOPROStol 50 MCG 1/2 TABLET PO PRN (15:40)
[2025-07-30] VITALS (40 sets, daily range): BP systolic 114–216; BP diastolic 62–116; O2SAT 99
[2025-07-30] MEDS: BUTORPHANOL 2 MG/ML 1 ML VIAL IV PRN (04:04)
[2025-07-30] MEDS: ONDANSETRON 4MG/2ML VIAL IV PRN (08:34)
[2025-07-30] MEDS ORDERED: LR 1,000 ML IV SCH (10:50)
[2025-07-30] MEDS ORDERED: LR 500 ML IV PRN (11:15)
[2025-07-30] MEDS ORDERED: diphenhydrAMINE 50 MG/ML VIAL IV PRN (11:15)
[2025-07-30] MEDS ORDERED: NALOXONE INJ 0.4 MG/1 ML VIAL IV PRN (11:15)
[2025-07-30] MEDS ORDERED: EPIDURAL/PCA KEYS XX PRN (11:15)
[2025-07-30] MEDS: OXYTOCIN DRIP 30 UNITS in IV 1 EA IV SCH (11:19)
[2025-07-30] MEDS: FENTANYL/ROPIVACAINE/NACL BAG 100 ML EPIDURAL SCH (12:13)
[2025-07-30] MEDS: LR 1,000 ML IV SCH (15:47)
[2025-07-30] MEDS: OXYTOCIN DRIP 30 UNITS in IV 1 EA IV PRN (21:20)
[2025-07-30] MEDS ORDERED: RHOGAM 300MCG (1500IU) INJ IM SCH (23:25)
[2025-07-30] MEDS ORDERED: ONDANSETRON 4MG/2ML VIAL IV PRN (23:25)
[2025-07-30] MEDS ORDERED: CALCIUM CARBONATE 500 MG CHEW U/D PO PRN (23:25)
[2025-07-30] MEDS ORDERED: METHYLERGONOVINE MALEATE 0.2 MG TAB PO PRN (23:25)
[2025-07-30] MEDS ORDERED: ACETAMINOPHEN 325 MG TAB PO PRN (23:25)
[2025-07-31 05:17] VITALS: BP 134/75; O2SAT 97
[2025-07-31] MEDS: IBUPROFEN 600 MG TAB PO PRN (05:52)
[2025-07-31] MEDS: FERROUS SULFATE 325 MG TAB PO SCH (10:52)
[2025-07-31] MEDS: PRENATAL VITAMINS CHEWABLE TABLET PO SCH (10:52)
[2025-07-31] MEDS: DOCUSATE SODIUM 100 MG CAPSULE PO PRN (11:10)
[2025-07-31] MEDS: DIBUCAINE 1% OINTMENT 30 GM TOP PRN (11:10)
[2025-07-31] MEDS: ANUSOL HC CREAM 30 GM TOP PRN (11:10)
[2025-07-31] MEDS: IBUPROFEN 800 MG TAB PO PRN (17:43)
[2025-07-31 18:00] VITALS: BP 131/81; O2SAT 98
[2025-07-31] MEDS: MOM 30 ML SUSPENSION UDC PO PRN (22:44)
[2025-07-31] MEDS: ACETAMINOPHEN 500 MG TAB PO PRN (22:45)
[2025-08-01 05:18] VITALS: BP 122/69; O2SAT 99
[2025-08-01] MEDS: MEASLES,MUMPS,RUBELLA VACCINE INJ (MMR-II) SC.IMMUN ONE (12:35)
== END 2025-08-01 14:10 | disposition home or self-care (01) | DRG 560 ==
LOC: M LDI 09:24 → M OBS 07-30 23:35
PROVIDERS: ADMIT Advanced Practice Midwife; ATTEND Advanced Practice Midwife
PROC: 3E033VJ Introduction of Other Hormone into Peripheral Vein, Percutaneous Approach (ICD-10-PCS; 2025-07-29)
PROC: 10E0XZZ Delivery of Products of Conception, External Approach (ICD-10-PCS; principal; 2025-07-30)
PROC: 0HQ9XZZ Repair Perineum Skin, External Approach (ICD-10-PCS; 2025-07-30)
DX: O14.04 Mild to moderate pre-eclampsia, complicating childbirth (principal); O69.81X0 Labor and delivery complicated by cord around neck, without compression, not applicable or unspecified; Z37.0 Single live birth; Z3A.38 38 weeks gestation of pregnancy; O70.0 First degree perineal laceration during delivery